=== PATIENT | female | born 1965 | race Caucasian/White ===

== ENCOUNTER → 2017-01-30 | Outpatient (CLI) | payer MEDICAID ==
[2017-01-30 12:48] LABS: CH 30.7; CHCM 35.1; HCT 34.3 % (34.0-46.0); HDW 2.26; HGB 12.2 gm/dL (11.4-16.0); MCH 31.3 pg (25.0-35.0); MCHC 35.7 g/dL (31.0-37.0); MCV 87.6 fL (80.0-100.0); RBC 3.91 m/uL (3.80-5.40); RDW 12.6 % (11.5-15.5); WBC 5.3 k/uL (3.8-10.6)
[2017-01-30 13:14] LABS: ALT 31 U/L (9-52); AST 17 U/L (14-36); Alkaline Phosphatase 60 U/L (38-126); Anion Gap 11 mmol/L; Blood Urea Nitrogen 8 mg/dL (7-17); Calcium 9.5 mg/dL (8.4-10.2); Carbon Dioxide 27 mmol/L (22-30); Chloride 87 mmol/L (98-107); Glucose 96 mg/dL (74-99); Non-African American GFR(MDRD) >60 (>60 ml/min/1.73 sqM); Potassium 4.3 mmol/L (3.5-5.1); Sodium 125 mmol/L (137-145); Total Bilirubin 0.5 mg/dL (0.2-1.3); Total Protein 7.6 g/dL (6.3-8.2)
[2017-01-30 14:02] LABS: Vitamin B12 540 pg/mL (239-931)
== END | disposition home or self-care (01) ==
LOC: LABWHC1 12:03
PROVIDERS: ATTEND Psychiatry & Neurology Neurology
DX: T42.1X5D Adverse effect of iminostilbenes, subsequent encounter (principal)
CPT/HCPCS: 36415; 80053; 82306; 82607; 84439; 84443; 85027

== ENCOUNTER 2017-02-06 08:11 | Day surgery (SDC) | payer MEDICAID ==
[2017-01-26 16:14] VITALS: BMI 34.7
[~2017-02-06 08:11] MED LIST: LACTATED RINGERS 1,000 ML IV SCH
[2017-02-06 08:57] VITALS: TEMP 98.1
[2017-02-06] MEDS ORDERED: LIDOCAINE 1% 20 ML VIAL (10MG/ML) FOR IV START INTRADERMA ONE (09:13)
[2017-02-06] MEDS ORDERED: GLYCOPYRROLATE 0.2 MG/ML 2 ML VIAL ONE (09:21)
[2017-02-06] MEDS ORDERED: LIDOCAINE 1% INJ 10MG/ML (20 ML MDV) ONE (09:21)
[2017-02-06] MEDS ORDERED: PROPOFOL 10 MG/ML 20 ML VIAL IV ONE (09:21)
--- NOTE | 2017-02-06 09:27 | P.GSHP ---
History of Present Illness H&P Date: 02/06/17 Chief Complaint: Abdominal pain Screening Patient today for upper and lower endoscopy. She has postprandial upper abdominal pain. No nausea or vomiting. Denies rectal bleeding or melena. No prior endoscopy. Due for screening colonoscopy. Past Medical History Past Medical History: Hypertension, Seizure Disorder Additional Past Medical History / Comment(s): epigastric pain, especially after eating, last seizure 2011 History of Any Multi-Drug Resistant Organisms: None Reported Past Surgical History: Tubal Ligation, Uterine Ablation Additional Past Surgical History / Comment(s): eye surg. Past Anesthesia/Blood Transfusion Reactions: No Reported Reaction Smoking Status: Never smoker Past Alcohol Use History: Rare Past Drug Use History: None Reported - Past Family History Mother Family Medical History: Coronary Artery Disease (CAD), Diabetes Mellitus Medications and Allergies Home Medications Medication Instructions Recorded Confirmed Type ALPRAZolam [Xanax] 0.5 mg PO HS 01/26/17 01/26/17 History Cholecalciferol [Vitamin D3] 1,000 unit PO DAILY 01/26/17 01/26/17 History Enalapril [Vasotec] 10 mg PO DAILY 01/26/17 02/02/17 History Multivit with Calcium,Iron,Min 1 each PO DAILY 01/26/17 01/26/17 History [Women's Multivitamin] OXcarbazepine [Trileptal] 300 mg PO QAM 01/26/17 01/26/17 History OXcarbazepine [Trileptal] 450 mg PO HS 01/26/17 01/26/17 History Coffeen-3 Fatty Acids/Fish Oil [Fish 1 each PO DAILY 01/26/17 01/26/17 History Oil 1,000 mg Softgel] lamoTRIgine [LaMICtal Xr] 25 mg PO DAILY 01/27/17 01/27/17 History Allergies Allergy/AdvReac Type Severity Reaction Status Date / Time Sulfa (Sulfonamide Allergy Rash/Hives Verified 02/06/17 08:42 Antibiotics) Surgical - Exam Vital Signs Temp Pulse Resp BP Pulse Ox 98.1 F 70 16 136/79 99 02/06/17 08:56 02/06/17 08:56 02/06/17 08:56 02/06/17 08:56 02/06/17 08:56 Physical exam: General: Well-developed, well-nourished HEENT: Normocephalic, sclerae nonicteric Abdomen: Nontender, nondistended Extremities: No edema Neuro: Alert and oriented Assessment and Plan (1) Abdominal pain Narrative/Plan: Will proceed with upper and lower endoscopy at this time. Associated risks were reviewed. Status: Acute
--- NOTE | 2017-02-06 09:56 | P.PCN ---
Date of Procedure: 02/06/17 Procedure(s) Performed: PREOPERATIVE DIAGNOSIS: Abdominal pain, screening POSTOPERATIVE DIAGNOSIS: Gastritis, hepatic flexure polyp PROCEDURE: 1. EGD with biopsy 2. Colonoscopy with snare polypectomy ANESTHESIA: MAC SURGEON: Nilo Perla M.D. SPECIMENS: Duodenum, antrum, hepatic flexure polyp ENDOSCOPIC PROCEDURE: The patient was on the endoscopy table in the left decubitus position. The Olympus gastroscope was inserted into the oropharynx and passed under direct visualization to the region of the third portion of the duodenum. From that point the scope was slowly withdrawn inspecting all surfaces carefully. There were no neoplastic inflammatory or polypoid lesions throughout the duodenum. The pylorus was widely patent although there was mild inflammation seen at the level of the pylorus. No definite ulceration was noted. The stomach was carefully inspected. There was a biopsy of the prepyloric region taken. Retroflexion revealed a normal hiatus. The esophagus was then carefully examined. There were no neoplastic inflammatory or polypoid lesions throughout the visualized esophagus. The patient was kept on the endoscopy table in the left decubitus position. The Olympus colonoscope was inserted into the anus and passed under direct visualization to the base of the cecum. The appendiceal orifice was visualized. From that point the scope was slowly withdrawn inspecting all surfaces carefully. There were no neoplastic inflammatory or polypoid lesions throughout the cecum and ascending colon. At the hepatic flexure a small polyp was identified and removed using the snare with cautery technique. The remainder of the transverse, descending, sigmoid and rectum appeared normal. There was no diverticulosis noted. Digital rectal examination was normal. The patient was taken to the recovery room in stable condition per anesthesia guidelines. RECOMMENDATIONS: Await BX results. Empirically start antiacid therapy.
[2017-02-06 10:37] VITALS: RESP 18
[2017-02-06] MEDS ORDERED: fentaNYL (PF) 50 MCG/ML 2 ML AMP IV ONE (10:56)
[2017-02-06 11:23] VITALS: BP 118/72; PULSE 66
== END 2017-02-06 11:23 | disposition home or self-care (01) ==
LOC: ORWHC2ENDO 08:11
PROVIDERS: ATTEND Surgery
DX: Z12.11 Encounter for screening for malignant neoplasm of colon (principal); D12.3 Benign neoplasm of transverse colon; K29.50 Unspecified chronic gastritis without bleeding; I10 Essential (primary) hypertension; G40.909 Epilepsy, unspecified, not intractable, without status epilepticus; F41.9 Anxiety disorder, unspecified; E78.5 Hyperlipidemia, unspecified; Z79.899 Other long term (current) drug therapy; Z88.2 Allergy status to sulfonamides
CPT/HCPCS: 81025; 88305; 88342; 45385; 43239; J2704; J2001; J3010

== ENCOUNTER → 2017-02-13 | Outpatient (CLI) | payer MEDICAID ==
[2017-02-13 12:52] LABS: Anion Gap 7 mmol/L; Blood Urea Nitrogen 10 mg/dL (7-17); Calcium 9.2 mg/dL (8.4-10.2); Carbon Dioxide 24 mmol/L (22-30); Chloride 106 mmol/L (98-107); Glucose 116 mg/dL (74-99); Non-African American GFR(MDRD) >60 (>60 ml/min/1.73 sqM); Potassium 4.3 mmol/L (3.5-5.1); Sodium 137 mmol/L (137-145)
== END | disposition home or self-care (01) ==
LOC: LABWHC1 12:06
PROVIDERS: ATTEND Family Medicine
DX: E87.1 Hypo-osmolality and hyponatremia (principal)
CPT/HCPCS: 36415; 80048

== ENCOUNTER → 2017-08-20 | Outpatient (CLI) | payer MEDICAID ==
[2017-08-20 08:45] LABS: Basophils % (A) 1 %; CH 29.8; CHCM 33.3; Eosinophils # (A) 0.1 k/uL (0-0.7); Eosinophils % (A) 3 %; HCT 37.4 % (34.0-46.0); HDW 2.21; HGB 12.5 gm/dL (11.4-16.0); Luc # (Auto) 0.08; Luc % (Auto) 2; Lymphocytes # (A) 1.8 k/uL (1.0-4.8); Lymphocytes % (A) 36 %; MCH 29.9 pg (25.0-35.0); MCHC 33.4 g/dL (31.0-37.0); MCV 89.7 fL (80.0-100.0); Mean Platelet Volume 6.3; Monocytes # (A) 0.3 k/uL (0-1.0); Monocytes % (A) 6 %; Neutrophils # (A) 2.8 k/uL (1.3-7.7); Neutrophils % (A) 54 %; RBC 4.17 m/uL (3.80-5.40); RDW 12.8 % (11.5-15.5); WBC 5.2 k/uL (3.8-10.6); WBC (Perox) 5.04
[2017-08-20 11:54] LABS: Erythrocyte Sedimentation Rate 12 mm/hr (0-20)
[2017-08-20 14:07] LABS: ALT 31 U/L (9-52); AST 17 U/L (14-36); Alkaline Phosphatase 65 U/L (38-126); Anion Gap 9 mmol/L; Blood Urea Nitrogen 11 mg/dL (7-17); Calcium 9.6 mg/dL (8.4-10.2); Carbon Dioxide 26 mmol/L (22-30); Chloride 105 mmol/L (98-107); Cholesterol 237 mg/dL (<200); Glucose 99 mg/dL (74-99); HDL Cholesterol 73 mg/dL (40-60); Non-African American GFR(MDRD) >60 (>60 ml/min/1.73 sqM); Potassium 4.8 mmol/L (3.5-5.1); Sodium 140 mmol/L (137-145); Total Bilirubin 0.4 mg/dL (0.2-1.3); Total Protein 7.4 g/dL (6.3-8.2); Uric Acid 4.5 mg/dL (3.7-7.4)
[2017-08-20 16:28] LABS: C Reactive Protein <5.0 mg/L (<10.0)
[2017-08-20 16:45] LABS: Rheumatoid Factor, Qnt <9 IU/mL (<12)
== END | disposition home or self-care (01) ==
LOC: LABWHC1 08:03
PROVIDERS: ATTEND Family Medicine
DX: M79.1 Myalgia (principal); I10 Essential (primary) hypertension; G40.909 Epilepsy, unspecified, not intractable, without status epilepticus
CPT/HCPCS: 36415; 80053; 80061; 80183; 84443; 84550; 85025; 85652; 86038; 86140; 86431

== ENCOUNTER → 2018-06-07 | Outpatient (CLI) | payer MEDICAID ==
[2018-06-08 01:15] LABS: Cyclic Citrullinated Pep IgG NEGATIVE (NEGATIVE)
[2018-06-08 02:09] LABS: Rheumatoid Factor 6 IU/mL (0-15)
[2018-06-08 04:06] LABS: Urine Alcohol Negative (Negative); Urine Barbiturate Negative (Negative); Urine Cocaine Negative (Negative); Urine Methadone Negative (Negative); Urine Opiates Negative (Negative); Urine Phencyclidine Negative (Negative)
== END | disposition home or self-care (01) ==
LOC: LABWHC1 16:38
PROVIDERS: ATTEND Family Medicine
DX: M25.50 Pain in unspecified joint (principal); Z79.899 Other long term (current) drug therapy
CPT/HCPCS: 36415; 80306; 85652; 86038; 86200; 86431

== ENCOUNTER → 2018-09-09 | Outpatient (CLI) | payer MEDICAID ==
--- NOTE | 2018-09-10 08:10 | MR ---
EXAMINATION TYPE: MR knee LT wo con DATE OF EXAM: 09/09/2018 COMPARISON: NONE HISTORY: Pain in left knee after injury one month ago. TECHNIQUE: Multiplanar, multisequence images of the knee is performed without IV contrast. FINDINGS: MEDIAL MENISCUS: Anterior horn is intact without tear. Some oblique increased signal posterior horn m edial meniscus does not definitively extend to articular surface, cannot exclude intrasubstance tear. Slight medial extrusion of meniscus is present LATERAL MENISCUS: Anterior and posterior horns are intact without tear. CRUCIATE LIGAMENTS: The anterior and posterior cruciate ligaments are intact and unremarkable. COLLATERAL LIGAMENTS: The medial collateral ligament and lateral collateral ligament complex are inta ct and unremarkable. EXTENSOR MECHANISM: Visualized quadriceps and patellar tendons are intact. EFFUSION: There is large suprapatellar joint effusion. POPLITEAL CYST: No popliteal/gray cyst. There is however focal fluid collection measuring 1.8 x 1.9 x 2.7 cm craniocaudal dimension axial image 6 and sagittal image 12 posterior lateral aspect of prox imal tibia. TRICOMPARTMENT SPACES: There is mild to moderate tricompartment degenerative change and mild spurring . CARTILAGE: Some contemplation patella is present with fissuring and thinning of the posterior patella r articular cartilage. There is some cartilaginous loss medial tibiofemoral compartment BONE MARROW SIGNAL: No focal abnormal marrow signal is appreciated. OTHER: Mild to moderate superficial infrapatellar fluid is noted. IMPRESSION: 1. Large suprapatellar joint effusion. 2. Background mild to moderate tricompartment degenerative changes. 3. No significant meniscal or ligamentous tear is seen. Cannot exclude intrasubstance tear posterior horn of medial meniscus. 4. Moderate-sized posterior lateral cyst proximal tibial level likely reflecting synovial cyst.
== END | disposition home or self-care (01) ==
LOC: RADMRIMAIN 21:00
PROVIDERS: ATTEND Orthopaedic Surgery
DX: M25.862 Other specified joint disorders, left knee (principal); M17.12 Unilateral primary osteoarthritis, left knee

== ENCOUNTER → 2018-09-16 | Outpatient (CLI) | payer MEDICAID ==
[2018-09-16 18:02] LABS: Basophils % (A) 0 %; Eosinophils # (A) 0.2 k/uL (0-0.7); Eosinophils % (A) 2 %; HCT 36.4 % (34.0-46.0); HGB 12.3 gm/dL (11.4-16.0); Lymphocytes # (A) 3.6 k/uL (1.0-4.8); Lymphocytes % (A) 43 %; MCH 30.3 pg (25.0-35.0); MCHC 33.8 g/dL (31.0-37.0); MCV 89.5 fL (80.0-100.0); Mean Platelet Volume 6.6; Monocytes # (A) 0.5 k/uL (0-1.0); Monocytes % (A) 6 %; Neutrophils # (A) 3.9 k/uL (1.3-7.7); Neutrophils % (A) 47 %; Platelet Count 261 k/uL (150-450); RBC 4.06 m/uL (3.80-5.40); RDW 13.2 % (11.5-15.5); WBC 8.4 k/uL (3.8-10.6)
[2018-09-16 18:17] LABS: Potassium 4.6 mmol/L (3.5-5.1)
== END | disposition home or self-care (01) ==
LOC: LABPAT 16:49
PROVIDERS: ATTEND Orthopaedic Surgery
DX: Z01.818 Encounter for other preprocedural examination (principal); Z01.812 Encounter for preprocedural laboratory examination; M23.92 Unspecified internal derangement of left knee
CPT/HCPCS: 80051; 85025; 93005

== ENCOUNTER 2018-10-06 10:05 | Day surgery (SDC) | payer MEDICAID ==
[2018-09-23 08:57] VITALS: BMI 33.1
--- NOTE | 2018-10-05 13:40 | HP ---
HISTORY AND PHYSICAL Surgery is 10/06/2018. Yaneth De Luna is a 52-year-old patient seen with progressive left knee pain. We discussed options. She elected to proceed with arthroscopy. Consent was obtained. PAST MEDICAL HISTORY: Hypertension. PAST SURGICAL HISTORY: Noncontributory. DAILY MEDICATIONS: Ibuprofen. ALLERGIES: SULFA. SOCIAL HISTORY: Patient denies tobacco use. PHYSICAL EXAMINATION: Physical evaluation of left knee: Range of motion -2 to 120 degrees. Moderate effusion. Tenderness medial joint line. Positive medial Moreno's. Ligaments stable. Distal neurovascular exam is intact. Radiographs of the left knee reveal some mild osteoarthritic changes. No acute osseous abnormality. MRI left knee revealed medial meniscal tear and large joint effusion. IMPRESSION: Internal derangement left knee with medial meniscal tear. PLAN: Left knee arthroscopy with partial meniscectomy and debridement. MMODL / IJN: [id number] /
[~2018-10-06 10:05] MED LIST changes: -LACTATED RINGERS 1,000 ML IV SCH; +ceFAZolin IN SWFI 2 GM/20 ML SYRINGE IVP ONE
[2018-10-06] MEDS ORDERED: DEXAMETHASONE SOD PHOSPHATE 10 MG/ML 1 ML VIAL IV ONE (10:48)
[2018-10-06] MEDS ORDERED: LIDOCAINE 1% 20 ML VIAL (10MG/ML) FOR IV START INTRADERMA PRN (10:48)
[2018-10-06] MEDS ORDERED: SCOPOLAMINE 1.5MG/72HR PATCH TRANSDERM ONE (10:48)
[2018-10-06] MEDS ORDERED: HYDROmorphone 0.5 MG/0.5 ML SYRINGE IVP PRN (10:48)
[2018-10-06] MEDS: ONDANSETRON 4 MG/2 ML VIAL IVP ONE ×2 (11:04→16:28)
[2018-10-06] MEDS: LACTATED RINGERS 1,000 ML IV SCH ×2 (11:07→16:35)
[2018-10-06] MEDS ORDERED: fentaNYL (PF) 50 MCG/ML 2 ML AMP ONE (12:56)
[2018-10-06] MEDS ORDERED: MIDAZOLAM 2 MG/2 ML VIAL ONE (12:56)
[2018-10-06] MEDS ORDERED: LIDOCAINE 1% INJ 10MG/ML (20 ML MDV) ONE (12:56)
[2018-10-06] MEDS ORDERED: PROPOFOL 10 MG/ML 50 ML VIAL IV ONE (12:56)
[2018-10-06] MEDS ORDERED: BUPIVACAIN-EPI 0.25%-1:200,000 30 ML VIAL INTRAARTIC ONE (13:27)
--- NOTE | 2018-10-06 13:42 | P.OP ---
Date of Procedure: 10/06/18 Preoperative Diagnosis: Internal derangement left knee Postoperative Diagnosis: 1. Medial and lateral meniscal tears left knee 2. Grade 3/4 chondromalacia medial femoral condyle left knee 3. Grade 2/3 chondromalacia patella left knee 4. Reactive synovitis medial and suprapatellar compartments left knee Procedure(s) Performed: 1. Arthroscopic partial medial and lateral meniscectomy left knee 2. Arthroscopic chondroplasty medial femoral condyle left knee 3. Arthroscopic chondroplasty patella left knee 4. Arthroscopic partial synovectomy medial and suprapatellar compartments left knee Anesthesia: VNEITAA, local Surgeon: João Urrutia Estimated Blood Loss (ml): 5 Pathology: none sent Condition: stable Disposition: PACU Indications for Procedure: 52-year-old patient seen with progressive left knee pain. After treatment options were discussed, she elected to proceed with arthroscopy. Operative Findings: See description of procedure Description of Procedure: Patient was taken to the operative suite. Patient underwent a general anesthetic by the department of anesthesia. Patient was given preoperative antibiotics. The left lower extremity was placed in a well-padded arthroscopic leg santiago. The left leg was prepped and draped in the normal sterile orthopedic fashion. A lateral parapatellar and suprapatellar incision was made. Trochars were inserted. Arthroscopy was initiated. Suprapatellar pouch revealed diffuse thick reactive synovitis. The patellofemoral joint appeared to articulate congruently. There was 2/3 chondromalacia of the patella with some osteochondral tears present. The scope was guided into the medial gutter. No loose bodies or plica were identified. The scope was then guided into the medial compartment. A medial parapatellar incision was made. Trocar inserted followed by probe. There was a radial tear posterior horn medial meniscus. There were grade 3/4 chondromalacia changes of the medial femoral condyle with some osteochondral tears and grade 4 chondromalacia changes of the tibial plateau. There was thick reactive synovitis anteriorly. I performed a partial medial meniscectomy down to stable tissue. I performed a chondroplasty of the medial femoral condyle down to stable tissue. I performed a partial synovectomy decompressing the reactive some-itis anteriorly. The residual meniscus was stable. The residual osteochondral surfaces were stable. Scope and probe were then guided into the intercondylar notch. Cruciates were identified, probed and found to be stable. The scope and probe were then guided into lateral compartment. There was a radial tear posterior horn lateral meniscus. There were grade 2 chondromalacia changes lateral femoral condyle. There was no synovitis. I performed a partial lateral meniscectomy down to stable tissue. The residual meniscus was found to be stable. The scope was in guided back into the suprapatellar compartment. I introduced a motorized shaver into the suprapatellar compartment. I performed a chondroplasty of the patella down to stable tissue. I performed a partial synovectomy decompressing the reactive synovitis. The residual osteochondral surface of the patella was stable. I took one more look around the entire knee , no residual debris. Instruments were now removed from the joint. The joint was infiltrated with .25% Marcaine. Steri-Strips were applied to the portal sites. Sterile dressings were applied. The patient was placed into a DANNY hose. No tourniquet was utilized. The patient was awakened, transferred to a bed and taken to recovery stable satisfactory condition.
[2018-10-06] MEDS ORDERED: HYDROmorphone 1 MG/ML 1 ML SYRINGE IVP ONE ×4 (13:46→14:08)
[2018-10-06 13:50] VITALS: TEMP 97.1
[2018-10-06] MEDS ORDERED: MEPERIDINE 50 MG/ML SYRINGE IVP ONE (14:26)
[2018-10-06] MEDS ORDERED: LACTATED RINGERS 1,000 ML IV ONE (14:46)
[2018-10-06 15:12] VITALS: RESP 16
[2018-10-06] MEDS ORDERED: HYDROcodone/APAP 5-325MG 1 EACH TAB PO ONE (15:38)
[2018-10-06 16:14] VITALS: BP 130/72; PULSE 78
[2018-10-06] MEDS ORDERED: diphenhydrAMINE 50 MG/ML 1 ML VIAL IVP ONE (17:10)
== END 2018-10-06 18:21 | disposition home or self-care (01) ==
LOC: OR 10:05
PROVIDERS: ATTEND Orthopaedic Surgery
DX: M23.322 Other meniscus derangements, posterior horn of medial meniscus, left knee (principal); M23.352 Other meniscus derangements, posterior horn of lateral meniscus, left knee; M65.862 Other synovitis and tenosynovitis, left lower leg; M22.42 Chondromalacia patellae, left knee; I10 Essential (primary) hypertension; M93.862 Other specified osteochondropathies, left lower leg; G40.909 Epilepsy, unspecified, not intractable, without status epilepticus; Z79.899 Other long term (current) drug therapy; Z88.2 Allergy status to sulfonamides; Z79.1 Long term (current) use of non-steroidal anti-inflammatories (NSAID)
CPT/HCPCS: 81025; 29880; J2250; J1200; J1100; J2175; J2405; J2001; J3010; J1170; J2704; J0690

== ENCOUNTER → 2018-10-25 | Outpatient (CLI) | payer MEDICAID ==
--- NOTE | 2018-10-27 09:43 | MM ---
Reason for exam: screening (asymptomatic). Last mammogram was performed 2 years and 8 months ago. History: Family history of breast cancer in paternal grandmother and breast cancer in maternal aunt. Taking hormonal contraceptives for 22 years beginning at age 20. Physical Findings: A clinical breast exam by your physician is recommended on an annual basis and results should be correlated with mammographic findings. MG 3D Screening Mammo W/Cad Bilateral CC and MLO view(s) were taken. Prior study comparison: February 15, 2016, bilateral MG 3d screening mammo w/cad. November 03, 2013, [facility] DIGITAL RIGHT MAMMOGRAM w/CAD. The breast tissue is heterogeneously dense. This may lower the sensitivity of mammography. No significant changes when compared with prior studies. ASSESSMENT: Benign, BI-RAD 2 RECOMMENDATION: Routine screening mammogram of both breasts in 1 year.
== END | disposition home or self-care (01) ==
LOC: RADMAMWWP 11:24
PROVIDERS: ATTEND Family Medicine
DX: Z12.31 Encounter for screening mammogram for malignant neoplasm of breast (principal)
CPT/HCPCS: 77063; 77067

== ENCOUNTER → 2019-04-28 | Outpatient (CLI) | payer MEDICAID ==
[2019-04-28 12:19] LABS: Basophils % (A) 0 %; Eosinophils # (A) 0.1 k/uL (0-0.7); Eosinophils % (A) 2 %; HCT 38.5 % (34.0-46.0); HGB 12.1 gm/dL (11.4-16.0); Lymphocytes # (A) 2.5 k/uL (1.0-4.8); Lymphocytes % (A) 38 %; MCH 28.2 pg (25.0-35.0); MCHC 31.4 g/dL (31.0-37.0); MCV 89.7 fL (80.0-100.0); Mean Platelet Volume 6.3; Monocytes # (A) 0.4 k/uL (0-1.0); Monocytes % (A) 6 %; Neutrophils # (A) 3.5 k/uL (1.3-7.7); Neutrophils % (A) 52 %; Platelet Count 356 k/uL (150-450); RBC 4.29 m/uL (3.80-5.40); RDW 13.2 % (11.5-15.5); WBC 6.7 k/uL (3.8-10.6)
[2019-04-28 20:37] LABS: Albumin 4.6 g/dL (3.80-4.90); Albumin/Globulin Ratio 1.92 (1.60-3.17); Anion Gap 9.7 mmol/L (4.00-12.00); Calcium 9.6 mg/dL (8.7-10.3); Carbon Dioxide 26.3 mmol/L (21.6-31.8); Globulin 2.4 g/dL (1.6-3.3); Potassium 4.6 mmol/L (3.5-5.5); Total Bilirubin 0.2 mg/dL (0.2-1.2)
== END ==
LOC: LABWHC1 10:52
PROVIDERS: ATTEND Psychiatry & Neurology Neurology
DX: G40.019 Localization-related (focal) (partial) idiopathic epilepsy and epileptic syndromes with seizures of localized onset, intractable, without status epilepticus (principal); G43.719 Chronic migraine without aura, intractable, without status migrainosus
CPT/HCPCS: 36415; 80053; 85025

== ENCOUNTER → 2019-07-11 | Outpatient (CLI) | payer MEDICAID ==
[2019-07-11 08:28] LABS: Basophils % (A) 1 %; Eosinophils # (A) 0.3 k/uL (0-0.7); Eosinophils % (A) 4 %; HCT 38.3 % (34.0-46.0); HGB 12.3 gm/dL (11.4-16.0); Lymphocytes % (A) 29 %; MCH 28.9 pg (25.0-35.0); MCV 90.4 fL (80.0-100.0); Mean Platelet Volume 6.6; Monocytes # (A) 0.4 k/uL (0-1.0); Monocytes % (A) 6 %; Neutrophils % (A) 59 %; Platelet Count 252 k/uL (150-450); RBC 4.23 m/uL (3.80-5.40); RDW 14.5 % (11.5-15.5); WBC 6.7 k/uL (3.8-10.6)
[2019-07-11 08:38] LABS: Potassium 4.4 mmol/L (3.5-5.1)
== END | disposition home or self-care (01) ==
LOC: LABWHC1 07:54
PROVIDERS: ATTEND Orthopaedic Surgery
DX: Z01.812 Encounter for preprocedural laboratory examination (principal); Z01.818 Encounter for other preprocedural examination; M17.12 Unilateral primary osteoarthritis, left knee
CPT/HCPCS: 80051; 85025; 87070

== ENCOUNTER → 2019-08-02 | Outpatient (CLI) | payer MEDICAID ==
[2019-08-02 16:04] LABS: INR 0.9 (<1.2); Prothrombin Time 10.2 sec (9.0-12.0)
== END | disposition home or self-care (01) ==
LOC: LABPAT 15:16
PROVIDERS: ATTEND Orthopaedic Surgery
DX: Z01.812 Encounter for preprocedural laboratory examination (principal); M17.12 Unilateral primary osteoarthritis, left knee; Z79.01 Long term (current) use of anticoagulants
CPT/HCPCS: 36415; 85610

== ENCOUNTER 2019-08-08 05:54 | Inpatient (IN) | payer MEDICAID ==
--- NOTE | 2019-08-07 14:18 | HP ---
HISTORY AND PHYSICAL REASON FOR ADMISSION: Surgery scheduled for 08/08/2019. Yaneth De Luna is a 53-year-old patient seen with progressive symptomatic left knee osteoarthritis. After having treatment options discussed, she elected to proceed with left total knee arthroplasty. Consent regarding the procedure was obtained. Medical clearance was provided by Dr. Miner. PAST MEDICAL HISTORY: Hypertension. PAST SURGICAL HISTORY: Left knee arthroscopy, tubal ligation. MEDICATIONS: Antihypertensive. ALLERGIES: SULFA. SOCIAL HISTORY: She denies current tobacco use. PHYSICAL EXAMINATION: Evaluation of the left knee: Range of motion is -2 to 115 degrees. Tenderness along the medial joint line. Crepitus along the medial and patellofemoral compartments range of motion. Ligaments are stable. Hip rotation is without pain. Her distal neurovascular exam is intact. RADIOGRAPHS: Radiographs of the left knee reveal severe medial and moderate patellofemoral compartment osteoarthritis. IMPRESSION: 1. Left knee osteoarthritis. 2. Hypertension. PLAN: Left total knee arthroplasty. Surgery scheduled for 08/08/2019. MMODL / IJN: [id number] /
[~2019-08-08 05:54] MED LIST changes: +ACETAMINOPHEN TAB 500 MG TAB PO ONE; +DEXAMETHASONE SOD PHOSPHATE 10 MG/ML 1 ML VIAL IV ONE; +HYDROmorphone 0.5 MG/0.5 ML SYRINGE IVP PRN; +LACTATED RINGERS 1,000 ML IV SCH; +MELOXICAM 7.5 MG TAB PO ONE; +MIDAZOLAM 2 MG/2 ML VIAL IV PRN; +ONDANSETRON 4 MG/2 ML VIAL IVP ONE; +SCOPOLAMINE 1.5MG/72HR PATCH TRANSDERM ONE; +TRANEXAMIC ACID 1,000 MG in SODIUM CHLORIDE 0.9% 100 ML IVPB ONE; -ceFAZolin IN SWFI 2 GM/20 ML SYRINGE IVP ONE
[2019-08-08] MEDS ORDERED: LIDOCAINE 1% 20 ML VIAL (10MG/ML) FOR IV START SQ ONE (06:33)
[2019-08-08] MEDS ORDERED: MIDAZOLAM (PF) 2 MG/2 ML VIAL IV ONE (06:46)
[2019-08-08] MEDS ORDERED: fentaNYL (PF) 50 MCG/ML 2 ML AMP IVP ONE (06:51)
[2019-08-08] MEDS ORDERED: SODIUM CHLORIDE 0.9% 100 ML BAG ONE (07:18)
[2019-08-08] MEDS ORDERED: fentaNYL (PF) 50 MCG/ML 2 ML AMP ONE (07:18)
[2019-08-08] MEDS ORDERED: TRANEXAMIC ACID 1,000 MG/10 ML VIAL ONE (07:18)
[2019-08-08] MEDS ORDERED: PROPOFOL 10 MG/ML 20 ML VIAL IV ONE (07:18)
[2019-08-08] MEDS ORDERED: MIDAZOLAM 2 MG/2 ML VIAL ONE (07:18)
[2019-08-08] MEDS ORDERED: ceFAZolin 3,000 MG in SODIUM CHLORIDE 0.9% IRRIGATIO 3,000 ML IRRIGATION ONE (07:23)
[2019-08-08] MEDS ORDERED: ROPIVACAINE 246.25 MG, EPINEPHrine 0.5 MG, KETOROLAC 30 MG, cloNIDine HCL/PF 80 MCG, WA... MISCELLANE ONE ×5 (07:50)
--- NOTE | 2019-08-08 08:15 | P.ANPRN ---
Procedure Note - Anesthesia - Nerve Block Performed Left Adductor Canal Time Out Performed: Yes (07:02) Date of Procedure: 08/08/19 Procedure Start Time: : Procedure Stop Time: :17 Location of Patient Procedure: PreOp Indication: Acute Post-Operative Pain, Requested by Surgeon (Dr Urrutia) Sedation Type: Sedate with meaningful contact maintained Preparation: Sterile Prep, Sterile Dressing Position: Supine Catheter: Indwelling Needle Types: On-Q Needle Gauge: 21 Ultrasound used to visualize needle placement: Yes Ultrasound used to observe medication spread: Yes Injectate: 0.5% Ropivacaine (see comment for volume) (22cc) Blood Aspirated: No Pain Paresthesia on Injection Noted: No Resistance on Injection: Normal Image Stored and Saved: Yes Events: Uneventful and Well Tolerated
[2019-08-08] MEDS ORDERED: LACTATED RINGERS 1,000 ML IV ONE (08:26)
--- NOTE | 2019-08-08 09:11 | P.OP ---
Date of Procedure: 08/08/19 Preoperative Diagnosis: Left knee osteoarthritis Postoperative Diagnosis: Left knee osteoarthritis Procedure(s) Performed: Left total knee arthroplasty Implants: 1. Depuy attune size 4 left cruciate-retaining cemented femur 2. Depuy attune size 3 fixed bearing cemented tibial baseplate 3. Depuy attune size 4 fixed bearing 7 mm polyethylene tibial insert 4. Depuy attune 38 mm all polyethylene cemented patella Anesthesia: GETA, regional (Interscalene block), local Surgeon: João Urrutia Estimated Blood Loss (ml): 40 Pathology: other (Bone) Condition: stable Disposition: PACU Indications for Procedure: 53-year-old patient seen with symptomatic left knee osteoarthritis. After treatment options were discussed, she elected to proceed with total knee arthroplasty. Operative Findings: see description of procedure Description of Procedure: Patient was taken to the operative suite after having an adductor canal catheter placed by the department of anesthesia for postoperative pain management. Patient underwent a spinal anesthetic by the department of anesthesia. Patient was given preoperative IV intake antibiotics and TXA. A well-padded tourniquet was placed about the left lower extremity. The lower extremity was then prepped and draped in the normal sterile orthopedic fashion. The extremity was elevated, a tourniquet was insufflated to 300. A standard anterior incision was made sharply through skin. Dissection was taken down through the subcutaneous soft tissues down to the extensor mechanism. A medial arthrotomy was performed, patella was everted and knee was flexed. There was advanced osteoarthritis noted. I introduced my distal intramedullary femoral drill. I then introduced the distal femoral cutting jig. Jacob JONES secured the cutting jig with 2 pins. I held retractors in position while Jacob JONES performed the distal femoral resection through the guide area we now removed her distal femoral cutting guide. We now placed our 4-in-1 femoral cutting block and positioned and it was secured with 2 pins by my res habilitation assistant while I held the block in position. The distal femoral finishing was now completed. A proximal tibial cutting guide was positioned. I held the guide in the appropriate position with both hands well Jacob JONES inserted stabilizing pins into the guide. Proximal tibial cut was made. We now placed a trial femoral component into position, along with an appropriate size tibial tray and insert. We now took the knee through range of motion and had full extension good flexion and good overall soft tissue balance noted. The patella was everted and stabilized with 2 towel clips held by my res habilitation assistant while I performed a flush with patellar quad tendon utilizing a fresh sawblade. We templated the patella, appropriate drill holes were made. An appropriate trial patella was positioned, knee was taken through full range of motion with the patella tracking very nicely. The trial patella was removed. Drill holes were made through the femoral component. All trial components were removed after marking off the appropriate rotation of the tibia. Retractors were now positioned along the proximal tibia. An appropriate keel punch was made with the appropriate size tibial guide by myself while my res habilitation assistant assisted by holding retractors. At this point appropriate size implants were chosen and opened. The joint was irrigated copiously with pulse lavage mechanical irrigation. The posterior capsule was infiltrated with local analgesic. The wound was irrigated with pulse lavage mechanical irrigation. We mixed antibiotic methylmethacrylate. We placed the knee into flexion. We placed multiple retractors assisted by Jacob JONES to expose the proximal tibia. Once the methyl methacrylate was ready, the tibial component was cemented into place removing any excess methylmethacrylate form by both myself and my res habilitation assistant. The femoral component was cemented into place removing the removing any excess methylmethacrylate performed by both myself and Jacob JONES. We then inserted the appropriate size polyethylene tibial insert. We made sure that it was locked into position. We took the knee into full extension, and then back in a flexion making sure we had removed any excess methylmethacrylate. The patellar component was then cemented down and secured with clamp. Excess methylmethacrylate removed. We kept the knee in full extension, patellar clamp in position until methylmethacrylate had hardened. Once it had hardened the patellar clamp was removed. The knee was taken through full range of motion. The patella tracked nicely. There was good soft tissue balancing. The tourniquet was now released. Additional hemostasis was achieved via electrocautery. A second gram of TXA was given. The wound again was irrigated with pulse lavage mechanical irrigation. The superficial soft tissues were infiltrated local analgesic. The extensor mechanism was repaired with Vicryl. We checked the repair with range of motion and it was stable. The subcutaneous soft tissues were repaired with Vicryl in layers. The skin was approximated with pernio/Dermabond. Sterile dressings were applied followed by loose web roll and Steven bandage. The patient was transferred to a bed, and taken to recovery in stable and satisfactory condition.
[2019-08-08] MEDS ORDERED: ONDANSETRON 4 MG/2 ML VIAL IVP PRN (09:12)
[2019-08-08] MEDS ORDERED: HYDROcodone/APAP 5-325MG 1 EACH TAB PO PRN ×2 (09:12)
[2019-08-08] MEDS ORDERED: HYDROmorphone 0.5 MG/0.5 ML SYRINGE IVP PRN ×2 (09:12)
[2019-08-08] MEDS ORDERED: NALOXONE 0.4 MG/ML 1 ML VIAL IV PRN (09:12)
[2019-08-08] MEDS ORDERED: HYDROmorphone 1 MG/ML 1 ML SYRINGE IVP PRN (09:12)
[2019-08-08] MEDS ORDERED: ROPIVACAINE 0.2%-NS ON-Q PUMP 1,090 MG, EMPTY PAIN BALL 1 EACH MISCELLANE PRN (09:37)
--- NOTE | 2019-08-08 09:53 | XR ---
EXAMINATION TYPE: XR knee limited LT DATE OF EXAM: 08/08/2019 CLINICAL HISTORY: Left knee pain and arthritis status post total knee replacement. TECHNIQUE: Portable AP and crosstable lateral views of the left knee are obtained immediately postop eratively. COMPARISON: MRI left knee September 09, 2018 FINDINGS: Metallic hardware from total left knee arthroplasty is seen and appears satisfactory in al ignment and position. There is evidence of recent surgery with diffuse subcutaneous gas and soft tis chris swelling noted. IMPRESSION: METALLIC HARDWARE FROM TOTAL LEFT KNEE ARTHROPLASTY IS SATISFACTORY IN ALIGNMENT.
[2019-08-08 10:54] VITALS: BMI 34.2
[2019-08-08] MEDS: LACTATED RINGERS 1,000 ML IV SCH ×2 (11:03→20:41)
[2019-08-08] MEDS ORDERED: HYDROcodone/APAP 7.5-325MG 1 EACH TAB PO PRN (13:54)
--- NOTE | 2019-08-08 14:10 | P.CONS ---
History of Present Illness - Reason for Consult Consult date: 08/08/19 Medical management. Requesting physician: João Urrutia - Chief Complaint Left knee pain. - History of Present Illness This 53-year-old lady with past medical history significant for hypertension, osteoarthritis of the left knee, chest esophageal reflux disease, seizure disorder, hyperlipidemia and sleep disorder who apparently failed outpatient management for her left knee osteoarthritis and elected to have totally arthroplasty done. Patient was referred to our service for medical management postoperatively. Patient reports that she is doing fine but there is pain in the left knee area since anesthesia is wearing off. Nurses reported that he just gave her when necessary Dilaudid injection. No other issues were brought up by the patient. Patient denies chest pain, palpitation, headache, dizziness, nausea, vomiting, cough, sputum, fever, chills and denies rest of the review system. Review of Systems 12 point review of system was essentially negative other than mentioned in HPI. Past Medical History Past Medical History: Hypertension, Seizure Disorder Additional Past Medical History / Comment(s): epigastric pain, especially after eating, last seizure 2011 History of Any Multi-Drug Resistant Organisms: None Reported Past Surgical History: Tubal Ligation, Uterine Ablation Additional Past Surgical History / Comment(s): Eye surgery, left knee arthroscopy. Past Anesthesia/Blood Transfusion Reactions: No Reported Reaction Past Psychological History: Anxiety Smoking Status: Never smoker Past Alcohol Use History: Rare Past Drug Use History: None Reported - Past Family History Mother Family Medical History: Coronary Artery Disease (CAD), Diabetes Mellitus Medications and Allergies Home Medications Medication Instructions Recorded Confirmed Type Cholecalciferol [Vitamin D3] 2,000 unit PO DAILY 01/26/17 08/08/19 History OXcarbazepine [Trileptal] 450 mg PO BID 01/26/17 08/08/19 History Amitriptyline HCl [Elavil] 20 mg PO HS 09/23/18 08/08/19 History traZODone HCL 50 mg PO HS 09/23/18 08/08/19 History Lisinopril [Zestril] 20 mg PO DAILY 08/02/19 08/08/19 History Omeprazole [PriLOSEC] 20 mg PO AC-BRKFST 08/02/19 08/08/19 History Allergies Allergy/AdvReac Type Severity Reaction Status Date / Time Sulfa (Sulfonamide Allergy Rash/Hives Verified 08/08/19 09:47 Antibiotics) Physical Exam Vitals: Vital Signs Temp Pulse Pulse Resp BP Pulse Ox 08/08/19 12:45 74 116/72 08/08/19 12:30 73 116/71 08/08/19 12:15 74 117/72 08/08/19 12:00 78 116/69 08/08/19 11:45 89 121/67 08/08/19 11:30 78 121/71 08/08/19 11:15 85 110/69 08/08/19 11:00 85 116/68 08/08/19 10:45 98.4 F 87 12 116/69 95 08/08/19 10:28 79 16 129/67 96 08/08/19 10:15 85 16 131/65 93 L 08/08/19 10:00 80 16 126/64 100 08/08/19 09:45 78 12 125/69 100 08/08/19 09:30 79 12 129/77 100 08/08/19 09:14 97.1 F L 91 12 129/70 95 08/08/19 06:19 96.8 F L 87 16 144/84 96 Intake and Output 08/07/19 08/08/19 08/08/19 22:59 06:59 14:59 Intake Total 500 851 Output Total 40 Balance 500 811 Intake: IV 500 851 Output: Estimated Blood Loss 40 - Constitutional General appearance: cooperative, no acute distress - EENT Eyes: EOMI, normal appearance ENT: hearing grossly normal, NA/AT - Neck Neck: no lymphadenopathy, normal ROM, no rigidity, no stridor, no thyromegaly - Respiratory Respiratory: bilateral: CTA, negative: diminished, dullness, rales, rhonchi, wheezing - Cardiovascular Rhythm: regular Heart sounds: normal: S1, S2 Abnormal Heart Sounds: no systolic murmur, no diastolic murmur, no S3 Gallop, no S4 Gallop - Gastrointestinal General gastrointestinal: no distended, normal bowel sounds, no rigid, soft, no tenderness - Neurologic No gross focal neuro deficits noted. Neurologic: CNII-XII intact - Psychiatric Psychiatric: A&O x's 3, appropriate affect, intact judgment & insight Results Results: Preoperative blood work with CBC, compressive metabolic panel and coagulation studies were reviewed. Comments: Preoperative medical clearance was done by patient primary care provider Dr. Miner, report was reviewed. Assessment and Plan (1) Hypertension, essential, benign Narrative/Plan: Patient blood pressure will be monitored and she will be continued on home dose of lisinopril 20 mg. Current Visit: Yes Status: Acute Priority: Medium Code(s): I10 - ESSENTIAL (PRIMARY) HYPERTENSION SNOMED Code(s): 5149035 (2) Seizure disorder Narrative/Plan: Patient is on Trileptal with well controlled off her seizure disorder as reported most recent seizure was about 7 years ago, I will continue her home medications and will monitor while he she is in the hospital. Current Visit: Yes Status: Acute Priority: Medium Code(s): G40.909 - EPILEPSY, UNSP, NOT INTRACTABLE, WITHOUT STATUS EPILEPTICUS SNOMED Code(s): 491362522 (3) Gastritis Narrative/Plan: Patient does not have a history of gastroesophageal reflux disease but she does have gastritis which was confirmed via EGD as reported by the patient. I will continue proton pump inhibitor for now and patient was advised not to use nonsteroidal anti-inflammatory drugs as it may worsen the gastritis. Current Visit: Yes Status: Acute Priority: Medium Code(s): K29.70 - GASTRITIS, UNSPECIFIED, WITHOUT BLEEDING SNOMED Code(s): 6304824 (4) Osteoarthritis Narrative/Plan: Your postoperative care and pain management, I took the liberty of increasing the hydrocodone to 7.5/325 mg 1-2 tablets every 6 hours as needed depending upon the pain scale. Patient has used 5/325 mg in the past with no significant help and the pain management. She will be continued on IV Dilaudid for immediate postoperative period and her pain management will be monitored closely by the [facility] admitting team. Current Visit: Yes Status: Acute Priority: High Code(s): M19.90 - UNSPEC IFIED OSTEOARTHRITIS, UNSPECIFIED SITE SNOMED Code(s): 576785845 Plan: Thank you Dr. Urrutia for allowing us to take part in the medical management of your patient. We will continue to monitor while patient is in the hospital. Time with Patient: Less than 30
[2019-08-08] MEDS: HYDROcodone/APAP 7.5-325MG 1 EACH TAB PO PRN ×2 (17:27→23:43)
[2019-08-08] MEDS: traMADol 50 MG TAB PO PRN (20:37)
[2019-08-08] MEDS: ENOXAPARIN 30 MG/0.3 ML SYRINGE SQ SCH (20:39)
[2019-08-08] MEDS: OXcarbazepine 150 MG TAB PO SCH (20:40)
[2019-08-08] MEDS ORDERED: traZODone HCL 50 MG TAB PO SCH (21:00)
[2019-08-08] MEDS ORDERED: AMITRIPTYLINE HCL 10 MG TAB PO SCH (21:00)
[2019-08-08] MEDS ORDERED: SENNOSIDES-DOCUSATE SODIUM 1 EACH TAB PO SCH (21:00)
[2019-08-09 01:35] VITALS: TEMP 97.9
[2019-08-09] MEDS: traMADol 50 MG TAB PO PRN ×2 (02:35→08:28)
[2019-08-09] MEDS: LACTATED RINGERS 1,000 ML IV SCH (03:26)
[2019-08-09] MEDS: HYDROcodone/APAP 7.5-325MG 1 EACH TAB PO PRN (05:55)
--- NOTE | 2019-08-09 07:06 | P.PN ---
Progress Note - Text Progress Note Date: 08/09/19 Postoperative day # 1 status post total knee arthroplasty, under spinal anesthesia, and adductor canal catheter placed for postoperative analgesia, currently at ropivacaine 0.2% 8 mL per hour and continuous infusion, visual analogue scale is 3/10, patient using oral pain medication for breakthrough pain. Assessment and plan= Acute postoperative pain, adductor canal catheter for pain control, pain is well controlled we'll continue the same management.
[2019-08-09 07:08] LABS: Basophils % (A) 0 %; Eosinophils # (A) 0.2 k/uL (0-0.7); Eosinophils % (A) 2 %; HCT 29.6 % (34.0-46.0); HGB 10.3 gm/dL (11.4-16.0); Lymphocytes # (A) 3.2 k/uL (1.0-4.8); Lymphocytes % (A) 30 %; MCH 29.9 pg (25.0-35.0); MCHC 34.8 g/dL (31.0-37.0); MCV 86.1 fL (80.0-100.0); Mean Platelet Volume 7.1; Monocytes # (A) 0.6 k/uL (0-1.0); Monocytes % (A) 6 %; Neutrophils # (A) 6.6 k/uL (1.3-7.7); Neutrophils % (A) 61 %; Platelet Count 222 k/uL (150-450); RBC 3.43 m/uL (3.80-5.40); RDW 14.3 % (11.5-15.5); WBC 10.9 k/uL (3.8-10.6)
[2019-08-09] MEDS ORDERED: PANTOPRAZOLE 40 MG TABLET PO SCH (07:30)
--- NOTE | 2019-08-09 07:40 | P.PN ---
Progress Note - Text Progress Note Date: 08/09/19 Patient seen lying in bed comfortably. She does report some left knee pain. She has been ambulatory with her walker. Incision stable. Homans and Reynaldo negative. Distal neurovascular exam is intact. Impression: Status post left total knee arthroplasty Plan: Physical therapy DVT prophylaxis We will plan discharge home today
[2019-08-09 07:45] VITALS: BP 99/57; PULSE 52; RESP 14
--- NOTE | 2019-08-09 07:50 | P.DS ---
Providers Date of admission: 08/08/19 05:54 Attending physician: João Urrutia Consults: 08/08/19 09:12 Consult Physician Routine Consulting Provider: Barrie Physician Consult Reason/Comments: Medical management Do you want consulting provider notified?: Yes Primary care physician: Mela Miner MD Hospital Course: Date of admission: 08/08/19 Date of discharge: 08/09/19 Admission diagnosis: Left total knee arthroplasty Discharge diagnosis: Left total knee arthroplasty Attending physician: João Urrutia DO Surgical procedure: Left total knee arthroplasty Brief history: Patient is a 53-year-old with a history of symptomatic left knee osteoarthritis. At this point patient has failed outpatient conservative treatment measures and has opted to proceed with an elective total knee arthroplasty. Hospital course: Details the patient surgery can be found in the operative report. Patient tolerated the procedure well and was subsequently transported to orthopedic floor. Patient orthopedic and medical care was provided daily. Patient had daily laboratory tests performed for evaluation of overall blood counts. Patient had daily physical therapy to include strengthening, range of motion as well as education with walker ambulation. Patient was treated with Lovenox for the postoperative DVT prophylaxis during there inpatient stay. Patient noted to have a relatively uneventful postoperative course. Patient reported satisfactory pain control with oral pain medication by postoperative day 1. Patient showed satisfactory progress with physical therapy. Patient removed steadily through the program and had no difficulty meeting goals by postop day 1. Given patient's otherwise satisfactory course and having met physical therapy goals, plan is to discharge patient to home on postoperative day 1. Discharge condition/disposition: Patient discharged to [home] in stable and satisfactory condition. Discharge medications: Patient is prescribed home medications per medicine as well as appropriate oral analgesics and anticoagulants. Discharge instructions: 1. Wound care and infectious precautions, keep incision dry and covered while showering, no lotions, creams, moisturized. No soaking, tubs, pools, hot tubs. Do not scrub over the incision 2. Weight-bear [as tolerated] with walker/cane until follow-up 3. Ice and elevate when necessary. Do not exceed 20 minutes per hour with ice pack. 4. Utilize compression sleeve until seen first postoperative appointment. 5. Visiting nursing care 6. Home physical therapy [including home CPM]. 7. Pain meds and anticoagulations per prescription 8. Pain medication has potential to cause constipation. Increase oral fluid and fiber intake. Contact primary care provider if you have not had a bowel movement within 48 hours after discharge. 9. No anti-inflammatory medication until discussed the first postoperative visit, this includes Motrin, Aleve, Mobic, diclofenac, [aspirin]. 10. Follow-up in [facility] in 2 weeks with Jacob Garcia PA-C 11. Follow up with your primary care doctor 7-10 days after discharge. 12. Contact [facility] with any questions, Patient Condition at Discharge: Good Plan - Discharge Summary Discharge Rx Participant: Yes New Discharge Prescriptions: New Aspirin [Adult Low Dose Aspirin EC] 81 mg PO BID #60 tablet. Docusate [Colace] 100 mg PO DAILY #30 capsule HYDROcodone/APAP 7.5-325MG [Pindall 7.5-325] 1 - 2 each PO Q6HR PRN #56 tab PRN Reason: Pain traMADol HCL [Ultram] 50 mg PO Q6HR PRN 7 Days #28 tab PRN Reason: Pain No Action OXcarbazepine [Trileptal] 450 mg PO BID Cholecalciferol [Vitamin D3] 2,000 unit PO DAILY traZODone HCL 50 mg PO HS Amitriptyline HCl [Elavil] 20 mg PO HS Lisinopril [Zestril] 20 mg PO DAILY Omeprazole [PriLOSEC] 20 mg PO -[facility] Discharge Medication List Cholecalciferol [Vitamin D3] 2,000 unit PO DAILY 01/26/17 [History] OXcarbazepine [Trileptal] 450 mg PO BID 01/26/17 [History] Amitriptyline HCl [Elavil] 20 mg PO HS 09/23/18 [History] traZODone HCL 50 mg PO HS 09/23/18 [History] Lisinopril [Zestril] 20 mg PO DAILY 08/02/19 [History] Omeprazole [PriLOSEC] 20 mg PO AC-BRKFST 08/02/19 [History] Aspirin [Adult Low Dose Aspirin EC] 81 mg PO BID #60 tablet. 08/09/19 [Rx] Docusate [Colace] 100 mg PO DAILY #30 capsule 08/09/19 [Rx] HYDROcodone/APAP 7.5-325MG [Pindall 7.5-325] 1 - 2 each PO Q6HR PRN #56 tab 08/09/19 [Rx] traMADol HCL [Ultram] 50 mg PO Q6HR PRN 7 Days #28 tab 08/09/19 [Rx] Follow up Appointment(s)/Referral(s): Dano Garcia, PAC [PHYSICIAN PURIFICATION SUPERVISOR] - 2 Weeks Activity/Diet/Wound Care/Special Instructions: Orthopedic discharge instructions: 1. Wound care infection precautions keep incision dry and covered while showering, no lotions, creams, moisturizers. No soaking, pools, hot tubs. Do not scrub over incision. 2. Weight-bear [as tolerated] with walker/cane until follow-up 3. Ice and elevate when necessary. Do not exceed 20 minutes per hour with ice pack. 4. Utilize compression sleeve until seen at first follow-up appointment. 5. Pain meds and anticoagulation per prescription. 6. Pain medication is potential to cause constipation. Increase oral fluids and fiber. Contact primary care provider. Has not had a bowel movement within 48 hours of discharge. 7. No anti-inflammatory medication and discussed at first postop visit, this includes Motrin, Aleve, Mobic, diclofenac. 8. Follow up in office at 2 weeks postoperatively with Jacob Garcia PA-C 9. Follow-up with primary care doctor within 7-10 days after discharge. 10. Contact [facility] with any questions, Discharge Disposition: HOME WITH HOME HEALTH SERVICES
[2019-08-09] MEDS: ENOXAPARIN 30 MG/0.3 ML SYRINGE SQ SCH (08:27)
[2019-08-09] MEDS: OXcarbazepine 150 MG TAB PO SCH (08:28)
[2019-08-09] MEDS ORDERED: CHOLECALCIFEROL 1,000 UNIT TAB PO SCH (09:00)
[2019-08-09] MEDS ORDERED: LISINOPRIL 20 MG TAB PO SCH (09:00)
[2019-08-09] MEDS ORDERED: MELOXICAM 7.5 MG TAB PO SCH (09:00)
--- NOTE | 2019-08-09 10:05 | P.PN ---
Subjective Progress Note Date: 08/09/19 Patient reports that she is feeling better and pain management since Percocet was increase. Patient stated that she had worked with the therapy and now her knee is sore from behind. It was noted that patient blood pressure is running into low 100s and high 90s, her Lisinopril was held this morning. Pt. had symptoms of nausea and lightheaded and was given Zofran with improvement in symptoms. Patient denies chest pain, palpitation, diaphoresis, headaches and denies rest of the review system. Objective - Vital Signs Vital signs: Vital Signs Temp 97.9 F 08/09/19 07:00 Pulse 52 L 08/09/19 07:00 Resp 14 08/09/19 07:00 BP 99/57 08/09/19 07:00 Pulse Ox 99 08/09/19 07:00 Intake & Output 08/08/19 08/09/19 08/09/19 18:59 06:59 18:59 Intake Total 1031 1360 Output Total 40 Balance 991 1360 Intake: IV 851 Intake, IV Titration 1000 Amount Lactated Ringers 1,000 ml 950 @ 100 mls/hr IV .Q10H MARK Rx#:[id number] ceFAZolin 2 gm In Sodium 50 Chloride 0.9% 50 ml @ 100 mls/hr IVPB Q8HR MARK Rx# :[id number] Oral 180 360 Output: Estimated Blood Loss 40 Other: Voiding Method Toilet # Voids 1 - Constitutional General appearance: Present: cooperative, no acute distress - Respiratory Respiratory: bilateral: CTA, negative: rales, rhonchi, wheezing - Cardiovascular Rhythm: regular Heart sounds: normal: S1, S2 Abnormal Heart Sounds: Absent: systolic murmur, diastolic murmur, S3 Gallop, S4 Gallop - Gastrointestinal General gastrointestinal: Present: normal bowel sounds, soft. Absent: distended, rigid, tenderness - Integumentary Integumentary: Present: normal, normal turgor - Neurologic Neurologic: Present: CNII-XII intact. Absent: focal deficits - Psychiatric Psychiatric: Present: A&O x's 3, appropriate affect, intact judgment & insight - Allied health notes Allied health notes reviewed: nursing - Labs CBC & Chem 7: 08/09/19 06:08 Labs: Abnormal Lab Results - Last 24 Hours (Table) 08/09/19 Range/Units 06:08 WBC 10.9 H (3.8-10.6) k/uL RBC 3.43 L (3.80-5.40) m/uL Hgb 10.3 L (11.4-16.0) gm/dL Hct 29.6 L (34.0-46.0) % Assessment and Plan (1) Hypertension, essential, benign Current Visit: Yes Status: Acute Priority: Medium Code(s): I10 - ESSENTIAL (PRIMARY) HYPERTENSION SNOMED Code(s): 4513682 (2) Seizure disorder Current Visit: Yes Status: Acute Priority: Medium Code(s): G40.909 - EPILEPSY, UNSP, NOT INTRACTABLE, WITHOUT STATUS EPILEPTICUS SNOMED Code(s): 718600974 (3) Gastritis Current Visit: Yes Status: Acute Priority: Medium Code(s): K29.70 - GASTRITIS, UNSPECIFIED, WITHOUT BLEEDING SNOMED Code(s): 6427542 (4) Osteoarthritis Current Visit: Yes Status: Acute Priority: High Code(s): M19.90 - UNSPECIFIED OSTEOARTHRITIS, UNSPECIFIED SITE SNOMED Code(s): 539423770 Plan: Patient was given education about check her blood pressure and if it is running low to cut down her lisinopril into half and take one half pill in the morning for blood pressure control. If her systolic blood pressure runs around 100 in the morning that she should be holding her lisinopril. Patient verbalizes understanding. Patient's home medication will be resumed at the time of simon vazquez no changes, other than above are suggested at this time. Patient reported that she will be working with the therapy and if therapy passes her which most likely will be that she will be going home later today. Again thank you for allowing us in taking care in the medical management of her patient. We will sign off, please call us if patient stays any further and he needs further assistance in medical management. Time with Patient: Less than 30
== END 2019-08-09 12:15 | disposition home health service (06) | DRG 470 ==
LOC: 2ORMAIN 05:54 → 4SSUR 09:03
PROVIDERS: ADMIT Orthopaedic Surgery; ATTEND Orthopaedic Surgery
PROC: 0SRD0J9 Replacement of Left Knee Joint with Synthetic Substitute, Cemented, Open Approach (ICD-10-PCS; principal; 2019-08-08 07:30)
DX: M17.12 Unilateral primary osteoarthritis, left knee (principal); G40.919 Epilepsy, unspecified, intractable, without status epilepticus; G89.18 Other acute postprocedural pain; K29.70 Gastritis, unspecified, without bleeding; I10 Essential (primary) hypertension; K21.9 Gastro-esophageal reflux disease without esophagitis; E78.5 Hyperlipidemia, unspecified; G47.9 Sleep disorder, unspecified; F41.8 Other specified anxiety disorders; E66.9 Obesity, unspecified; Z68.34 Body mass index [BMI] 34.0-34.9, adult; Z79.899 Other long term (current) drug therapy; Z98.890 Other specified postprocedural states; Z86.010 Personal history of colon polyps; Z98.51 Tubal ligation status; Z83.3 Family history of diabetes mellitus; Z82.49 Family history of ischemic heart disease and other diseases of the circulatory system; Z88.2 Allergy status to sulfonamides; Z82.3 Family history of stroke; Z80.1 Family history of malignant neoplasm of trachea, bronchus and lung; Z80.3 Family history of malignant neoplasm of breast; Z80.0 Family history of malignant neoplasm of digestive organs; Z82.0 Family history of epilepsy and other diseases of the nervous system; Z83.511 Family history of glaucoma
CPT/HCPCS: 64448; 81025; 85025; 88300

== ENCOUNTER → 2020-01-30 | Outpatient (CLI) | payer MEDICAID ==
--- NOTE | 2020-01-31 10:09 | XR ---
EXAMINATION TYPE: XR chest 2V DATE OF EXAM: 01/30/2020 COMPARISON: None INDICATION: Neck pain cough short of breath TECHNIQUE: Frontal and lateral views of the chest are obtained. FINDINGS: The heart size is normal. The pulmonary vasculature is normal. The lungs are clear. Spondylosis within the thoracic spine. IMPRESSION: 1. No acute pulmonary process.
--- NOTE | 2020-01-31 10:10 | XR ---
EXAMINATION TYPE: XR soft tissue neck DATE OF EXAM: 01/30/2020 COMPARISON: None HISTORY: Neck pain, cough TECHNIQUE: 2 view soft tissue neck FINDINGS: Prevertebral space is normal. Small anterior vertebral body spurs are noted C5-6. Posterior spinal lamellar line appears intact. Epiglottis is unremarkable. Subglottic airway is visualized francesca ears normal. IMPRESSION: 1. Normal soft tissue neck
== END | disposition home or self-care (01) ==
LOC: RADXRMAIN 16:52
PROVIDERS: ATTEND Family Medicine
DX: R05 Cough (principal); M54.2 Cervicalgia; R06.02 Shortness of breath
CPT/HCPCS: 70360; 71046

== ENCOUNTER → 2020-05-25 | Outpatient (CLI) | payer MEDICAID ==
[2020-05-25 14:11] LABS: Basophils % (A) 0 %; Eosinophils # (A) 0.2 k/uL (0-0.7); Eosinophils % (A) 3 %; HCT 34.5 % (34.0-46.0); HGB 11.2 gm/dL (11.4-16.0); Lymphocytes # (A) 2.1 k/uL (1.0-4.8); Lymphocytes % (A) 36 %; MCH 29.2 pg (25.0-35.0); MCHC 32.5 g/dL (31.0-37.0); MCV 89.7 fL (80.0-100.0); Mean Platelet Volume 6.8; Monocytes # (A) 0.4 k/uL (0-1.0); Monocytes % (A) 7 %; Neutrophils # (A) 3.1 k/uL (1.3-7.7); Neutrophils % (A) 53 %; Platelet Count 267 k/uL (150-450); RBC 3.85 m/uL (3.80-5.40); RDW 13.1 % (11.5-15.5); WBC 5.9 k/uL (3.8-10.6)
[2020-05-25 16:16] LABS: Erythrocyte Sedimentation Rate 12 mm/hr (0-20)
[2020-05-25 19:13] LABS: African American GFR (CKD) 113.8 (60.0-200.0); Albumin 4.4 g/dL (3.80-4.90); Albumin/Globulin Ratio 1.83 (1.60-3.17); Anion Gap 7.1 mmol/L (4.00-12.00); BUN/Creat Ratio 12.86 Ratio (12.00-20.00); Calcium 9.3 mg/dL (8.7-10.3); Carbon Dioxide 23.9 mmol/L (21.6-31.8); Globulin 2.4 g/dL (1.6-3.3); Non-African American GFR(CKD) 98.2 (60.0-200.0); Potassium 4.3 mmol/L (3.5-5.5); Total Bilirubin 0.3 mg/dL (0.2-1.2); Total Protein 6.8 g/dL (6.2-8.2)
== END | disposition home or self-care (01) ==
LOC: LABWHC1 13:17
PROVIDERS: ATTEND Psychiatry & Neurology Neurology
DX: M79.10 Myalgia, unspecified site (principal); T50.995A Adverse effect of other drugs, medicaments and biological substances, initial encounter; K21.9 Gastro-esophageal reflux disease without esophagitis
CPT/HCPCS: 36415; 80053; 82550; 82607; 85025; 85652; 86038

== ENCOUNTER → 2020-12-13 | Outpatient (CLI) | payer MEDICAID ==
--- NOTE | 2020-12-14 14:31 | MM ---
Reason for exam: screening (asymptomatic). Last mammogram was performed 2 years and 2 months ago. History: Family history of breast cancer in paternal grandmother and breast cancer in maternal aunt. Taking hormonal contraceptives for 22 years beginning at age 20. Physical Findings: A clinical breast exam by your physician is recommended on an annual basis and results should be correlated with mammographic findings. MG 3D Screening Mammo W/Cad Bilateral CC and MLO view(s) were taken. Prior study comparison: October 25, 2018, bilateral MG 3d screening mammo w/cad. February 15, 2016, bilateral MG 3d screening mammo w/cad. The breast tissue is heterogeneously dense. This may lower the sensitivity of mammography. There are benign appearing round calcifications in the right breast. There is no discrete abnormality. ASSESSMENT: Benign, BI-RAD 2 RECOMMENDATION: Routine screening mammogram of both breasts in 1 year.
== END | disposition home or self-care (01) ==
LOC: RADMAMWWP 15:12
PROVIDERS: ATTEND Obstetrics & Gynecology
DX: Z12.31 Encounter for screening mammogram for malignant neoplasm of breast (principal); Z80.3 Family history of malignant neoplasm of breast
CPT/HCPCS: 77063; 77067

== ENCOUNTER → 2021-06-17 | Outpatient (CLI) | payer MEDICAID | LOC: NEUROMAIN 09:19 | PROVIDERS: ATTEND Psychiatry & Neurology Neurology | DX: R41.3 Other amnesia (principal); G40.909 Epilepsy, unspecified, not intractable, without status epilepticus; Z88.2 Allergy status to sulfonamides | CPT/HCPCS: 95816 ==

== ENCOUNTER → 2022-02-24 | Outpatient (CLI) | payer MEDICAID, OTHER ==
[2022-02-24 14:37] LABS: Basophils # (A) 0.03 X 10*3/uL (0.00-0.10); Basophils % (A) 0.5 %; Eosinophils # (A) 0.11 X 10*3/uL (0.04-0.35); Eosinophils % (A) 1.9 %; HCT 35.8 % (37.2-46.3); HGB 11.3 g/dL (12.0-15.0); Immature Grans, Automated 0.2 %; Lymphocytes # (A) 2.02 X 10*3/uL (0.90-5.00); Lymphocytes % (A) 34.2 %; MCH 28.9 pg (27.0-32.0); MCHC 31.6 g/dL (32.0-37.0); MCV 91.6 fL (80.0-97.0); Mean Platelet Volume 8.9 fL (9.5-12.2); Monocytes # (A) 0.41 X 10*3/uL (0.20-1.00); Monocytes % (A) 6.9 %; NRBC Per 100 WBC 0 /100 WBCS (0.0-0.0); Neutrophils # (A) 3.33 X 10*3/uL (1.80-7.70); Neutrophils % (A) 56.3 %; Platelet Count 294 X 10*3/uL (140-440); RBC 3.91 X 10*6/uL (4.10-5.20); RDW 13.4 % (11.5-14.5); WBC 5.91 X 10*3/uL (4.50-10.00)
[2022-02-24 15:26] LABS: ALT 37 U/L (8-44); AST 17 U/L (13-35); African American GFR (CKD) 112.3 (60.0-200.0); Albumin 4.6 g/dL (3.8-4.9); Albumin/Globulin Ratio 1.64 (1.60-3.17); Alkaline Phosphatase 85 U/L (41-126); BUN/Creat Ratio 15.71 Ratio (12.00-20.00); Calcium 9.5 mg/dL (8.7-10.3); Carbon Dioxide 22.4 mmol/L (20.0-27.5); Chloride 100 mmol/L (96-109); Globulin 2.8 g/dL (1.6-3.3); Glucose 115 mg/dL (70-110); Non-African American GFR(CKD) 96.9 (60.0-200.0); Potassium 4.7 mmol/L (3.5-5.5); Sodium 135 mmol/L (135-145); Total Bilirubin <0.15 mg/dL (0.30-1.20); Total Protein 7.4 g/dL (6.2-8.2)
== END | disposition home or self-care (01) ==
LOC: LABWHC1 08:10
PROVIDERS: ATTEND Psychiatry & Neurology Neurology
DX: Z51.81 Encounter for therapeutic drug level monitoring (principal); G40.909 Epilepsy, unspecified, not intractable, without status epilepticus
CPT/HCPCS: 36415; 80053; 80183; 85025

== ENCOUNTER → 2022-08-22 | Outpatient (CLI) | payer MEDICAID ==
[2022-08-22 10:55] LABS: Basophils # (A) 0.02 X 10*3/uL (0.00-0.10); Basophils % (A) 0.4 %; Eosinophils # (A) 0.11 X 10*3/uL (0.04-0.35); Eosinophils % (A) 2.1 %; HCT 36.2 % (37.2-46.3); HGB 11.9 g/dL (12.0-15.0); Immature Grans, Automated 0.2 %; Lymphocytes # (A) 2.17 X 10*3/uL (0.90-5.00); Lymphocytes % (A) 40.8 %; MCH 28.5 pg (27.0-32.0); MCHC 32.9 g/dL (32.0-37.0); MCV 86.8 fL (80.0-97.0); Mean Platelet Volume 8.8 fL (9.5-12.2); Monocytes # (A) 0.38 X 10*3/uL (0.20-1.00); Monocytes % (A) 7.1 %; NRBC Per 100 WBC 0 /100 WBCS (0.0-0.0); Neutrophils # (A) 2.63 X 10*3/uL (1.80-7.70); Neutrophils % (A) 49.4 %; Platelet Count 329 X 10*3/uL (140-440); RBC 4.17 X 10*6/uL (4.10-5.20); RDW 13.2 % (11.5-14.5); WBC 5.32 X 10*3/uL (4.50-10.00)
[2022-08-22 11:26] LABS: ALT 21 U/L (8-44); AST 17 U/L (13-35); African American GFR (CKD) 115.3 (60.0-200.0); Albumin 4.5 g/dL (3.8-4.9); Albumin/Globulin Ratio 1.51 (1.60-3.17); Alkaline Phosphatase 87 U/L (41-126); BUN/Creat Ratio 14.47 Ratio (12.00-20.00); Blood Urea Nitrogen 9.4 mg/dL (9.0-27.0); Calcium 9.5 mg/dL (8.7-10.3); Carbon Dioxide 20.8 mmol/L (20.0-27.5); Chloride 93 mmol/L (96-109); Chol/HDL Ratio 3.41 Ratio; Glucose 117 mg/dL (70-110); LDL Cholesterol,Calculated 151.9 mg/dL (0.0-131.0); Non-African American GFR(CKD) 99.5 (60.0-200.0); Potassium 4.7 mmol/L (3.5-5.5); Sodium 127 mmol/L (135-145); Total Protein 7.5 g/dL (6.2-8.2)
== END | disposition home or self-care (01) ==
LOC: LABWHC1 07:39
PROVIDERS: ATTEND Physician Assistant Medical
DX: I10 Essential (primary) hypertension (principal); R53.83 Other fatigue
CPT/HCPCS: 36415; 80053; 80061; 82306; 83036; 84439; 84443; 85025

== ENCOUNTER → 2022-08-25 | Outpatient (CLI) | payer MEDICAID ==
--- NOTE | 2022-08-26 10:51 | MM ---
Reason for Exam: Screening (asymptomatic). Last mammogram was performed 1 year(s) and 8 month(s) ago. Patient History: Menarche at age 11. First Full-Term at age 30. Late child-bearing (after 30). Hormonal Contraceptives, starting at age 20 for 22 years. Paternal grandmother had breast cancer, age 75. Risk Values: Ilsa 5 year model risk: 1.9%. NCI Lifetime model risk: 11.9%. Prior Study Comparison: 02/15/2016 Bilateral Screening Mammogram, [facility]. 10/25/2018 Bilateral Screening Mammogram, [facility]. 12/13/2020 Bilateral Screening Mammogram, [facility]. Tissue Density: The breast tissue is heterogeneously dense. This may lower the sensitivity of mammography. Findings: Analyzed By CAD. Redemonstrated global asymmetry superior right MLO view. No significant change from prior exams. Overall Assessment: Benign, BI-RAD 2 Management: Screening Mammogram of both breasts in 1 year. 1. Patient should continue monthly self breast exams. 2. A clinical breast exam by your physician is recommended on an annual basis. 3. This exam should not preclude additional follow-up of suspicious palpable abnormalities. Electronically signed and approved by: Eddie Mansfield M.D. Radiologist
== END | disposition home or self-care (01) ==
LOC: RADMAMWWP 11:13
PROVIDERS: ATTEND Family Medicine
DX: Z12.31 Encounter for screening mammogram for malignant neoplasm of breast (principal); Z80.3 Family history of malignant neoplasm of breast
CPT/HCPCS: 77063; 77067

== ENCOUNTER → 2022-08-29 | Outpatient (CLI) | payer MEDICAID ==
[2022-08-29 18:48] LABS: African American GFR (CKD) 112.3 (60.0-200.0); Albumin 4.6 g/dL (3.8-4.9); Albumin/Globulin Ratio 1.39 (1.60-3.17); Anion Gap 11.5 mmol/L (10.00-18.00); BUN/Creat Ratio 11.71 Ratio (12.00-20.00); Blood Urea Nitrogen 8.2 mg/dL (9.0-27.0); Calcium 9.4 mg/dL (8.7-10.3); Carbon Dioxide 24.5 mmol/L (20.0-27.5); Globulin 3.3 g/dL (1.6-3.3); Magnesium 1.9 mg/dL (1.5-2.4); Non-African American GFR(CKD) 96.9 (60.0-200.0); Potassium 4.7 mmol/L (3.5-5.5); Total Bilirubin 0.4 mg/dL (0.30-1.20); Total Protein 7.9 g/dL (6.2-8.2)
[2022-08-30 23:14] LABS: C-Peptide 3.29 ng/mL (0.81-3.85)
== END | disposition home or self-care (01) ==
LOC: LABWHC1 13:37
PROVIDERS: ATTEND Physician Assistant Medical
DX: I10 Essential (primary) hypertension (principal); E87.1 Hypo-osmolality and hyponatremia; E11.65 Type 2 diabetes mellitus with hyperglycemia; G40.909 Epilepsy, unspecified, not intractable, without status epilepticus
CPT/HCPCS: 36415; 80053; 83735; 84681

== ENCOUNTER → 2022-08-30 | Outpatient (CLI) | payer MEDICAID | END | disposition home or self-care (01) | LOC: LABWHC1 08:22 | PROVIDERS: ATTEND Psychiatry & Neurology Neurology | DX: G40.919 Epilepsy, unspecified, intractable, without status epilepticus (principal); E87.1 Hypo-osmolality and hyponatremia | CPT/HCPCS: 36415; 80183 ==

== ENCOUNTER 2022-09-30 08:09 | Emergency (ER) | payer MEDICAID ==
[2022-09-30] MEDS ORDERED: SODIUM CHLORIDE 0.9% 500 ML 500 ML IV STA (08:11)
[2022-09-30] MEDS ORDERED: LORazepam 2 MG/ML INJ IV STA (08:12)
[2022-09-30 08:15] VITALS: RESP 18
--- NOTE | 2022-09-30 08:23 | ED ---
General Adult HPI - General Chief complaint: Dizziness Stated complaint: syncope Time Seen by Provider: 09/30/22 08:11 Source: patient, RN/MD, RN notes reviewed Mode of arrival: wheelchair Limitations: no limitations - History of Present Illness Initial comments: This a 56-year-old female presents emergency Department with chief complaint of abdominal pain, shortness of breath. Patient states she started having abdominal comfort from lower aspect and over the bathroom she had near syncopal episode. She states she felt like she has not passed out merely pulled up pants and states that she became very diaphoretic and felt short of breath. At this point a A team was called in the hospital and patient was brought to emergency department. Patient was having acute anxiety, shortness of breath became severe diaphoretic. She denies any chest pain she has meant that she is epileptic, has a history of diabetes on was on ozempic. Patient denies any back pain, flank pain no history kidney stones she is did admit to some nausea without vomiting. - Related Data Home Medications Medication Instructions Recorded Confirmed Cholecalciferol [Vitamin D3 (25 2,000 unit PO DAILY 01/26/17 08/08/19 Mcg = 1000 Iu)] OXcarbazepine [Trileptal] 450 mg PO BID 01/26/17 08/08/19 Amitriptyline HCl [Elavil] 20 mg PO HS 09/23/18 08/08/19 traZODone HCL 50 mg PO HS 09/23/18 08/08/19 Omeprazole [PriLOSEC] 20 mg PO AC-BRKFST 08/02/19 08/08/19 lisinopriL [Zestril] 20 mg PO DAILY 08/02/19 08/08/19 Previous Rx's Medication Instructions Recorded Aspirin [Adult Low Dose Aspirin EC] 81 mg PO BID #60 tablet. 08/09/19 Docusate [Colace] 100 mg PO DAILY #30 capsule 08/09/19 HYDROcodone/APAP 7.5-325MG [[place] 1 - 2 each PO Q6HR PRN #56 tab 08/09/19 7.5-325] traMADol HCL [Ultram] 50 mg PO Q6HR PRN 7 Days #28 tab 08/09/19 Allergies Allergy/AdvReac Type Severity Reaction Status Date / Time Sulfa (Sulfonamide Allergy Rash/Hives Verified 09/30/22 08:15 Antibiotics) Review of Systems ROS Statement: Those systems with pertinent positive or pertinent negative responses have been documented in the HPI. ROS Other: All systems not noted in ROS Statement are negative. Past Medical History Past Medical History: Hypertension, Seizure Disorder Additional Past Medical History / Comment(s): epigastric pain, especially after eating, last seizure 2011, diabetes, hyponatremia, History of Any Multi-Drug Resistant Organisms: None Reported Past Surgical History: Tubal Ligation, Uterine Ablation Additional Past Surgical History / Comment(s): Eye surgery, left knee arthroscopy. Past Anesthesia/Blood Transfusion Reactions: No Reported Reaction Past Psychological History: Anxiety Smoking Status: Never smoker Past Alcohol Use History: Rare Past Drug Use History: None Reported - Past Family History Mother Family Medical History: Coronary Artery Disease (CAD), Diabetes Mellitus General Exam Limitations: no limitations General appearance: alert, in no apparent distress Head exam: Present: atraumatic, normocephalic, normal inspection Neck exam: Present: normal inspection. Absent: tenderness, meningismus, lymphadenopathy Respiratory exam: Present: normal lung sounds bilaterally. Absent: respiratory distress, wheezes, rales, rhonchi, stridor Cardiovascular Exam: Present: regular rate, normal rhythm, normal heart sounds. Absent: systolic murmur, diastolic murmur, rubs, gallop, clicks GI/Abdominal exam: Present: soft, tenderness, normal bowel sounds. Absent: distended, guarding, rebound, rigid Back exam: Absent: CVA tenderness (R), CVA tenderness (L) Neurological exam: Present: alert, oriented X3 Skin exam: Present: warm, dry, intact, normal color. Absent: rash Course Vital Signs 09/30/22 09/30/22 09/30/22 08:10 09:15 10:15 Temperature 97.9 F Pulse Rate 85 75 76 Respiratory 18 18 18 Rate Blood Pressure 127/81 132/94 150/87 O2 Sat by Pulse 98 97 99 Oximetry Medical Decision Making - Medical Decision Making 56-year-old female presented for abdominal pain, near syncopal episode. Patient greatly improved at this time patient is elevated d-dimer CT of the chest was performed rule out PE. Patient was went abdominal pain which started her s ymptoms she has a mild constipation but no other acute findings. Patient will be discharged in stable condition follow-up return parameters were discussed. - Lab Data Result diagrams: 09/30/22 08:21 09/30/22 08:21 Lab Results 09/30/22 09/30/22 09/30/22 Range/Units 08:21 08:21 08:21 WBC 4.3 (3.8-10.6) k/uL RBC 4.07 (3.80-5.40) m/uL Hgb 12.1 (11.4-16.0) gm/dL Hct 35.7 (34.0-46.0) % MCV 87.6 (80.0-100.0) fL MCH 29.6 (25.0-35.0) pg MCHC 33.8 (31.0-37.0) g/dL RDW 12.7 (11.5-15.5) % Plt Count 270 (150-450) k/uL MPV 7.0 Neutrophils % 46 % Lymphocytes % 40 % Monocytes % 8 % Eosinophils % 4 % Basophils % 1 % Neutrophils # 2.0 (1.3-7.7) k/uL Lymphocytes # 1.7 (1.0-4.8) k/uL Monocytes # 0.3 (0-1.0) k/uL Eosinophils # 0.2 (0-0.7) k/uL Basophils # 0.0 (0-0.2) k/uL D-Dimer (<0.60) mg/L FEU Sodium 131 L (137-145) mmol/L Potassium 4.1 (3.5-5.1) mmol/L Chloride 98 (98-107) mmol/L Carbon Dioxide 19 L (22-30) mmol/L Anion Gap 14 mmol/L BUN 10 (7-17) mg/dL Creatinine 0.68 (0.52-1.04) mg/dL Est GFR (CKD-EPI)AfAm >90 (>60 ml/min/1.73 sqM) Est GFR (CKD-EPI)NonAf >90 (>60 ml/min/1.73 sqM) Glucose 119 H (74-99) mg/dL POC Glucose (mg/dL) (70-110) mg/dL POC Glu Skin Diving Teacher ID Plasma Lactic Acid Chacho 1.7 (0.7-2.0) mmol/L Calcium 9.1 (8.4-10.2) mg/dL Total Bilirubin 0.5 (0.2-1.3) mg/dL AST 26 (14-36) U/L ALT 28 (4-34) U/L Alkaline Phosphatase 86 (38-126) U/L Troponin I (0.000-0.034) ng/mL NT-Pro-B Natriuret Pep pg/mL Total Protein 7.4 (6.3-8.2) g/dL Albumin 4.7 (3.5-5.0) g/dL Lipase 186 (23-300) U/L Urine Color Urine Appearance (Clear) Urine pH (5.0-8.0) Ur Specific Kensal (1.001-1.035) Urine Protein (Negative) Urine Glucose (UA) (Negative) Urine Ketones (Negative) Urine Blood (Negative) Urine Nitrite (Negative) Urine Bilirubin (Negative) Urine Urobilinogen (<2.0) mg/dL Ur Leukocyte Esterase (Negative) Urine RBC (0-5) /hpf Urine WBC (0-5) /hpf Ur Squamous Epith Cells (0-4) /hpf Urine Bacteria (None) /hpf Hyaline Casts (0-2) /lpf Urine Mucus (None) /hpf 09/30/22 09/30/22 09/30/22 Range/Units 08:21 08:21 08:21 WBC (3.8-10.6) k/uL RBC (3.80-5.40) m/uL Hgb (11.4-16.0) gm/dL Hct (34.0-46.0) % MCV (80.0-100.0) fL MCH (25.0-35.0) pg MCHC (31.0-37.0) g/dL RDW (11.5-15.5) % Plt Count (150-450) k/uL MPV Neutrophils % % Lymphocytes % % Monocytes % % Eosinophils % % Basophils % % Neutrophils # (1.3-7.7) k/uL Lymphocytes # (1.0-4.8) k/uL Monocytes # (0-1.0) k/uL Eosinophils # (0-0.7) k/uL Basophils # (0-0.2) k/uL D-Dimer 2.16 H (<0.60) mg/L FEU Sodium (137-145) mmol/L Potassium (3.5-5.1) mmol/L Chloride (98-107) mmol/L Carbon Dioxide (22-30) mmol/L Anion Gap mmol/L BUN (7-17) mg/dL Creatinine (0.52-1.04) mg/dL Est GFR (CKD-EPI)AfAm (>60 ml/min/1.73 sqM) Est GFR (CKD-EPI)NonAf (>60 ml/min/1.73 sqM) Glucose (74-99) mg/dL POC Glucose (mg/dL) (70-110) mg/dL POC Glu Skin Diving Teacher ID Plasma Lactic Acid Chacho (0.7-2.0) mmol/L Calcium (8.4-10.2) mg/dL Total Bilirubin (0.2-1.3) mg/dL AST (14-36) U/L ALT (4-34) U/L Alkaline Phosphatase (38-126) U/L Troponin I <0.012 (0.000-0.034) ng/mL NT-Pro-B Natriuret Pep 54 pg/mL Total Protein (6.3-8.2) g/dL Albumin (3.5-5.0) g/dL Lipase (23-300) U/L Urine Color Urine Appearance (Clear) Urine pH (5.0-8.0) Ur Specific [place] (1.001-1.035) Urine Protein (Negative) Urine Glucose (UA) (Negative) Urine Ketones (Negative) Urine Blood (Negative) Urine Nitrite (Negative) Urine Bilirubin (Negative) Urine Urobilinogen (<2.0) mg/dL Ur Leukocyte Esterase (Negative) Urine RBC (0-5) /hpf Urine WBC (0-5) /hpf Ur Squamous Epith Cells (0-4) /hpf Urine Bacteria (None) /hpf Hyaline Casts (0-2) /lpf Urine Mucus (None) /hpf 09/30/22 09/30/22 Range/Units 08:22 10:32 WBC (3.8-10.6) k/uL RBC (3.80-5.40) m/uL Hgb (11.4-16.0) gm/dL Hct (34.0-46.0) % MCV (80.0-100.0) fL MCH (25.0-35.0) pg MCHC (31.0-37.0) g/dL RDW (11.5-15.5) % Plt Count (150-450) k/uL MPV Neutrophils % % Lymphocytes % % Monocytes % % Eosinophils % % Basophils % % Neutrophils # (1.3-7.7) k/uL Lymphocytes # (1.0-4.8) k/uL Monocytes # (0-1.0) k/uL Eosinophils # (0-0.7) k/uL Basophils # (0-0.2) k/uL D-Dimer (<0.60) mg/L FEU Sodium (137-145) mmol/L Potassium (3.5-5.1) mmol/L Chloride (98-107) mmol/L Carbon Dioxide (22-30) mmol/L Anion Gap mmol/L BUN (7-17) mg/dL Creatinine (0.52-1.04) mg/dL Est GFR (CKD-EPI)AfAm (>60 ml/min/1.73 sqM) Est GFR (CKD-EPI)NonAf (>60 ml/min/1.73 sqM) Glucose (74-99) mg/dL POC Glucose (mg/dL) 113 H (70-110) mg/dL POC Glu Skin Diving Teacher ID Maribeth Engleta Plasma Lactic Acid Chacho (0.7-2.0) mmol/L Calcium (8.4-10.2) mg/dL Total Bilirubin (0.2-1.3) mg/dL AST (14-36) U/L ALT (4-34) U/L Alkaline Phosphatase (38-126) U/L Troponin I (0.000-0.034) ng/mL NT-Pro-B Natriuret Pep pg/mL Total Protein (6.3-8.2) g/dL Albumin (3.5-5.0) g/dL Lipase (23-300) U/L Urine Color Light Yellow Urine Appearance Clear (Clear) Urine pH 7.0 (5.0-8.0) Ur Specific [place] 1.024 (1.001-1.035) Urine Protein Negative (Negative) Urine Glucose (UA) Negative (Negative) Urine Ketones Negative (Negative) Urine Blood Negative (Negative) Urine Nitrite Negative (Negative) Urine Bilirubin Negative (Negative) Urine Urobilinogen <2.0 (<2.0) mg/dL Ur Leukocyte Esterase Large H (Negative) Urine RBC 1 (0-5) /hpf Urine WBC 4 (0-5) /hpf Ur Squamous Epith Cells 3 (0-4) /hpf Urine Bacteria Rare H (None) /hpf Hyaline Casts 1 (0-2) /lpf Urine Mucus Rare H (None) /hpf Disposition Clinical Impression: Abdominal pain, Vasovagal near syncope Disposition: HOME SELF-CARE Condition: Stable Instructions (If sedation given, give patient instructions): Near Syncope (ED) Additional Instructions: Please return to the Emergency Department if symptoms worsen or any other concerns. Is patient prescribed a controlled substance at d/c from ED?: No Referrals: José Miguel Costa MD [Primary Care Provider] - 1-2 days Time of Disposition: 11:13
[2022-09-30 08:30] LABS: Glucose,Whole Blood 113 mg/dL (70-110)
[2022-09-30 08:34] LABS: Basophils % (A) 1 %; Eosinophils # (A) 0.2 k/uL (0-0.7); Eosinophils % (A) 4 %; HCT 35.7 % (34.0-46.0); HGB 12.1 gm/dL (11.4-16.0); Lymphocytes # (A) 1.7 k/uL (1.0-4.8); Lymphocytes % (A) 40 %; MCH 29.6 pg (25.0-35.0); MCHC 33.8 g/dL (31.0-37.0); MCV 87.6 fL (80.0-100.0); Monocytes # (A) 0.3 k/uL (0-1.0); Monocytes % (A) 8 %; Neutrophils % (A) 46 %; Platelet Count 270 k/uL (150-450); RBC 4.07 m/uL (3.80-5.40); RDW 12.7 % (11.5-15.5); WBC 4.3 k/uL (3.8-10.6)
[2022-09-30 08:54] LABS: ALT 28 U/L (4-34); AST 26 U/L (14-36); African American GFR (CKD) >90 (>60 ml/min/1.73 sqM); Albumin 4.7 g/dL (3.5-5.0); Alkaline Phosphatase 86 U/L (38-126); Anion Gap 14 mmol/L; Blood Urea Nitrogen 10 mg/dL (7-17); Calcium 9.1 mg/dL (8.4-10.2); Carbon Dioxide 19 mmol/L (22-30); Chloride 98 mmol/L (98-107); Glucose 119 mg/dL (74-99); Lipase 186 U/L (23-300); Non-African American GFR(CKD) >90 (>60 ml/min/1.73 sqM); Potassium 4.1 mmol/L (3.5-5.1); Sodium 131 mmol/L (137-145); Total Bilirubin 0.5 mg/dL (0.2-1.3); Total Protein 7.4 g/dL (6.3-8.2)
--- NOTE | 2022-09-30 08:54 | XR ---
EXAMINATION TYPE: XR chest 2V DATE OF EXAM: 09/30/2022 COMPARISON: 01/30/2020 INDICATION: Short of breath dizziness weakness TECHNIQUE: Frontal and lateral views of the chest are obtained. FINDINGS: The heart size is normal. The pulmonary vasculature is normal. The lungs are clear. Spondylosis through the lower thoracic spine. IMPRESSION: 1. No acute pulmonary process.
--- NOTE | 2022-09-30 09:48 | CT ---
EXAMINATION TYPE: CT chest angio for PE DATE OF EXAM: 09/30/2022 COMPARISON: NONE HISTORY: CP, SOB, and Abdominal pain CT DLP: 1576.9 mGycm. Automated Exposure Control for Dose Reduction was Utilized. CONTRAST: CTA scan of the thorax is performed with IV Contrast, patient injected with 100 ml mL of Isovue 370, pulmonary embolism protocol. MIP Images are created on CT scanner and reviewed. FINDINGS: LUNGS: Mild bibasilar linear scarring and/or atelectasis. No suspicious focal consolidation. No pleur al effusion or pneumothorax is seen bilaterally. No suspicious masses. MEDIASTINUM: There is satisfactory enhancement of the pulmonary artery and its branches, there is no CT evidence for pulmonary embolism. There are no greater than 1 cm hilar or mediastinal lymph nodes. No cardiomegaly or pericardial effusion is seen. Satisfactory enhancement of the thoracic aorta wi thout dissection ascending aorta measures up to 3.8 cm in diameter. OTHER: Please refer to same day CT abdomen and pelvis report for complete details on the upper abdome n. IMPRESSION: No CT evidence for pulmonary embolism. No suspicious acute pulmonary process.
--- NOTE | 2022-09-30 09:56 | CT ---
EXAMINATION TYPE: CT abdomen pelvis w con DATE OF EXAM: 09/30/2022 HISTORY: CP, SOB and Abdominal pain CT DLP: 1576.9mGycm Automated Exposure Control for Dose Reduction was Utilized. CONTRAST: CT scan of the abdomen and pelvis is performed without oral and with IV Contrast, patient injected wi th 100 ml mL of Isovue 370. COMPARISON: Prior CT 2011 FINDINGS: LUNG BASES: Please refer to same day CTA chest report for complete details on the lung bases. LIVER/GB: Visualized liver remains heterogeneously hypodense relative to spleen consistent with mild diffuse fatty infiltration. PANCREAS: No significant abnormality is seen. SPLEEN: No significant abnormality is seen. ADRENALS: No significant abnormality is seen. KIDNEYS: Symmetric corticomedullary uptake and excretion without hydronephrosis seen bilaterally. BOWEL: Suboptimal evaluation without enteric contrast. No suspicious small or large bowel dilatation is seen. Mild to borderline moderate areas of fecal prominence throughout the colon. UTERUS/ADNEXA: Anteverted uterus. Displaced tubal ligation clips in the pelvis on axial image 71 are now present. Scattered tiny bilateral pelvic phleboliths redemonstrated. LYMPH NODES: No greater than 1cm abdominal or pelvic lymph nodes are appreciated. OSSEOUS STRUCTURES: No significant abnormality is seen. OTHER: No significant additional abnormality is seen. IMPRESSION: Mild colonic fecal stasis otherwise no significant new or acute finding is seen to accoun t for patient's clinical symptoms of nonspecified abdominal pain. No bowel obstruction is noted.
[2022-09-30 11:11] LABS: Appearance,Urine Clear (Clear); Bacteria,Urine Rare /hpf; Bilirubin,Urine Negative (Negative); Blood,Urine Negative (Negative); Color,Urine Light Yellow; Glucose,Urine (UA) Negative (Negative); Hyaline Casts,Urine 1 /lpf (0-2); Ketones,Urine Negative (Negative); Leukocyte Esterase,Urine Large (Negative); Mucus,Urine Rare /hpf; Nitrite,Urine Negative (Negative); Protein,Urine Negative (Negative); RBC,Urine 1 /hpf (0-5); Specific Gravity,Urine 1.024 (1.001-1.035); Squamous Epithelial Cell,Urine 3 /hpf (0-4); Urobilinogen,Urine <2.0 mg/dL (<2.0); WBC,Urine 4 /hpf (0-5)
[2022-09-30 11:31] VITALS: BP 136/82; PULSE 70; TEMP 97.8
== END 2022-09-30 11:31 | disposition home or self-care (01) ==
LOC: EC 08:09
DX: R55 Syncope and collapse (principal); R10.9 Unspecified abdominal pain; I10 Essential (primary) hypertension; F41.9 Anxiety disorder, unspecified; Z88.2 Allergy status to sulfonamides; Z79.82 Long term (current) use of aspirin; Z79.899 Other long term (current) drug therapy
CPT/HCPCS: 36415; 93005; 85379; 83880; 80053; 83605; 83690; 84484; 85025; 81001; 71046; 71275; 74177; 99285; 96360; Q9967

== ENCOUNTER → 2022-11-04 | Outpatient (CLI) | payer MEDICAID ==
[2022-11-04 18:23] LABS: African American GFR (CKD) 116.4 (60.0-200.0); Albumin 4.5 g/dL (3.8-4.9); Albumin/Globulin Ratio 1.72 (1.60-3.17); Anion Gap 17.6 mmol/L (10.00-18.00); BUN/Creat Ratio 13.92 Ratio (12.00-20.00); Blood Urea Nitrogen 8.7 mg/dL (9.0-27.0); Calcium 9.7 mg/dL (8.7-10.3); Carbon Dioxide 18.5 mmol/L (20.0-27.5); Globulin 2.6 g/dL (1.6-3.3); Non-African American GFR(CKD) 100.4 (60.0-200.0); Total Bilirubin 0.2 mg/dL (0.30-1.20)
== END | disposition home or self-care (01) ==
LOC: LABWHC1 09:01
PROVIDERS: ATTEND Physician Assistant Medical
DX: E87.1 Hypo-osmolality and hyponatremia (principal); G40.909 Epilepsy, unspecified, not intractable, without status epilepticus
CPT/HCPCS: 36415; 80053; 80183

== ENCOUNTER → 2023-05-22 | Outpatient (CLI) | payer MEDICAID ==
[2023-05-22 11:34] LABS: ALT 28 U/L (8-44); AST 17 U/L (13-35); Albumin 4.7 d/dL (3.8-4.9); Albumin/Globulin Ratio 1.74 Ratio (1.60-3.17); Alkaline Phosphatase 81 U/L (41-126); BUN/Creat Ratio 16.71 Ratio (12.00-20.00); Blood Urea Nitrogen 11.7 mg/dL (9.0-27.0); Calcium 9.5 mg/dL (8.7-10.3); Carbon Dioxide 22.7 mmol/L (21.6-31.8); Chloride 98 mmol/L (96-109); Globulin 2.7 d/dL (1.6-3.3); Glucose 94 mg/dL (70-110); Potassium 4.4 mmol/L (3.5-5.5); Sodium 131 mmol/L (135-145); Total Bilirubin 0.2 mg/dL (0.3-1.2); Total Protein 7.4 d/dL (6.2-8.2)
[2023-05-22 22:03] LABS: Microalbumin Creatinine Ratio <16 mg/g Cr (0-30); Urine Creatinine 74.7 mg/dL (28.0-217.0)
== END | disposition home or self-care (01) ==
LOC: LABWHC1 07:04
PROVIDERS: ATTEND Physician Assistant Medical
DX: E87.1 Hypo-osmolality and hyponatremia (principal); R73.03 Prediabetes; G40.909 Epilepsy, unspecified, not intractable, without status epilepticus
CPT/HCPCS: 36415; 80053; 80156; 82043; 82570

== ENCOUNTER → 2023-06-04 | Outpatient (CLI) | payer MEDICAID ==
[2023-06-04 16:42] LABS: ALT 31 U/L (8-44); AST 18 U/L (13-35); Albumin 4.7 d/dL (3.8-4.9); Albumin/Globulin Ratio 1.74 Ratio (1.60-3.17); Alkaline Phosphatase 81 U/L (41-126); BUN/Creat Ratio 16.83 Ratio (12.00-20.00); Blood Urea Nitrogen 10.1 mg/dL (9.0-27.0); Calcium 9.7 mg/dL (8.7-10.3); Carbon Dioxide 23.1 mmol/L (21.6-31.8); Chloride 98 mmol/L (96-109); Globulin 2.7 d/dL (1.6-3.3); Glucose 90 mg/dL (70-110); Potassium 4.6 mmol/L (3.5-5.5); Sodium 133 mmol/L (135-145); Total Bilirubin <0.2 mg/dL (0.3-1.2); Total Protein 7.4 d/dL (6.2-8.2)
== END | disposition home or self-care (01) ==
LOC: LABWHC1 07:28
PROVIDERS: ATTEND Physician Assistant Medical
DX: E87.1 Hypo-osmolality and hyponatremia (principal); R52 Pain, unspecified
CPT/HCPCS: 36415; 80053; 83930; 83935; 84300

== ENCOUNTER 2023-09-29 06:34 | Day surgery (SDC) | payer MEDICAID ==
[2023-09-29] MEDS ORDERED: LIDOCAINE 1% (10MG/ML) FOR IV START INTRADERMA PRN (07:17)
[2023-09-29] MEDS ORDERED: LACTATED RINGERS 1,000 ML IV SCH (07:17)
[2023-09-29] MEDS ORDERED: ONDANSETRON 4 MG/2 ML VIAL IVP ONE (07:34)
[2023-09-29] MEDS ORDERED: ONDANSETRON 4 MG/2 ML VIAL ONE (07:37)
[2023-09-29 07:38] LABS: Glucose,Whole Blood 107 mg/dL (70-110)
[2023-09-29 07:41] VITALS: TEMP 97
[2023-09-29] MEDS ORDERED: PROPOFOL 10 MG/ML 20 ML VIAL IV ONE (08:04)
--- NOTE | 2023-09-29 08:09 | P.GSHP ---
History of Present Illness H&P Date: 09/29/23 Chief Complaint: Colon cancer screening 57-year-old female here for colonoscopy. Last colonoscopy 6 years ago. History of tubular adenoma at the time. No bowel complaints. No family history of colon cancer. Past Medical History Past Medical History: Diabetes Mellitus, GERD/Reflux, Hypertension, Seizure Disorder Additional Past Medical History / Comment(s): last seizure 2011, still gets auras periodically, hx colon polyps History of Any Multi-Drug Resistant Organisms: None Reported Past Surgical History: Joint Replacement, Orthopedic Surgery, Tubal Ligation, Uterine Ablation Additional Past Surgical History / Comment(s): right orbital fx. repair after accident, left knee arthroscopy & left knee replaced Past Anesthesia/Blood Transfusion Reactions: Motion Sickness, Postoperative Nausea & Vomiting (PONV) Smoking Status: Never smoker - Past Family History Mother Family Medical History: Coronary Artery Disease (CAD), Diabetes Mellitus Medications and Allergies Home Medications Medication Instructions Recorded Confirmed Type Cholecalciferol [Vitamin D3 (25 2,000 unit PO DAILY 01/26/17 09/29/23 History Mcg = 1000 Iu)] Amitriptyline HCl [Elavil] 20 mg PO HS 09/23/18 09/29/23 History traZODone HCL 50 mg PO HS 09/23/18 09/29/23 History Omeprazole [PriLOSEC] 20 mg PO Q2D 08/02/19 09/29/23 History lisinopriL [Zestril] 20 mg PO DAILY 08/02/19 09/29/23 History Docusate [Colace] 100 mg PO DAILY #30 capsule 08/09/19 09/29/23 Rx Multivitamins, Thera [Multivitamin 1 tab PO DAILY 09/21/23 09/29/23 History (formulary)] Semaglutide [Ozempic] 1 mg SQ FR 09/21/23 09/29/23 History carBAMazepine [Carbatrol] 300 mg PO BID 09/21/23 09/29/23 History Allergies Allergy/AdvReac Type Severity Reaction Status Date / Time Sulfa (Sulfonamide Allergy Rash/Hives Verified 09/29/23 07:18 Antibiotics) Surgical - Exam Vital Signs Temp Pulse Resp BP Pulse Ox 97 F L 82 16 136/75 98 09/29/23 07:25 09/29/23 07:25 09/29/23 07:25 09/29/23 07:25 09/29/23 07:25 Physical exam: General: Well-developed, well-nourished HEENT: Normocephalic, sclerae nonicteric Abdomen: Nontender, nondistended Extremities: No edema Neuro: Alert and oriented Assessment and Plan (1) Colon cancer screening Narrative/Plan: Will proceed with colonoscopy at this time Current Visit: Yes Status: Acute Code(s): Z12.11 - ENCOUNTER FOR SCREENING FOR MALIGNANT NEOPLASM OF COLON SNOMED Code(s): 996441249
--- NOTE | 2023-09-29 08:41 | P.PCN ---
Date of Procedure: 09/29/23 Procedure(s) Performed: PREOPERATIVE DIAGNOSIS: Colon cancer screening with history of adenoma POSTOPERATIVE DIAGNOSIS: Cecal polyp, rectal polyp 2 PROCEDURE: Colonoscopy with snare polypectomy ANESTHESIA: MAC SURGEON: Nilo Perla M.D. SPECIMENS: Polyps ENDOSCOPIC PROCEDURE: The patient was placed on the endoscopy table in the left decubitus position. The Olympus colonoscope was inserted into the anus and passed under direct visualization to the base of the cecum. The appendiceal orifice was visualized. From that point the scope was slowly withdrawn inspecting all surfaces carefully. There was a small sessile polyp opposite of the ileocecal valve. This was removed using the snare with cautery technique. The remainder of the cecum and ascending transverse descending and sigmoid colon appeared normal. In the rectum there were 2 polyps one measuring about 9 mm in size removed using the snare with cautery technique. The remainder the rectum was normal. No visible diverticulosis. Digital rectal examination was normal. The patient was taken to the recovery room in stable condition per anesthesia guidelines. RECOMMENDATIONS: Await biopsy results. Plan repeat colonoscopy 5 years.
[2023-09-29 08:49] VITALS: RESP 12
[2023-09-29 09:13] VITALS: BP 120/72; PULSE 65
== END 2023-09-29 09:41 | disposition home or self-care (01) ==
LOC: ORWHC2ENDO 06:34
PROVIDERS: ATTEND Surgery
DX: Z12.11 Encounter for screening for malignant neoplasm of colon (principal); K62.1 Rectal polyp; K63.5 Polyp of colon; I10 Essential (primary) hypertension; E11.9 Type 2 diabetes mellitus without complications; F41.9 Anxiety disorder, unspecified; K21.9 Gastro-esophageal reflux disease without esophagitis; G40.909 Epilepsy, unspecified, not intractable, without status epilepticus; Z79.82 Long term (current) use of aspirin; Z79.84 Long term (current) use of oral hypoglycemic drugs; Z88.2 Allergy status to sulfonamides; Z79.85 Long-term (current) use of injectable non-insulin antidiabetic drugs; Z79.01 Long term (current) use of anticoagulants; Z79.899 Other long term (current) drug therapy; Z98.890 Other specified postprocedural states
CPT/HCPCS: 88305; 45385; J2405; J2704

== ENCOUNTER → 2023-12-08 | Outpatient (CLI) | payer MEDICAID ==
--- NOTE | 2023-12-08 18:16 | MM ---
Reason for Exam: Screening (asymptomatic). Last mammogram was performed 1 year(s) and 4 month(s) ago. Patient History: Menarche at age 11. First Full-Term at age 30. Late child-bearing (after 30). Postmenopausal. Hormonal Contraceptives, starting at age 20 for 22 years. Paternal grandmother had breast cancer, age 75. Risk Values: Ilsa 5 year model risk: 2.0%. NCI Lifetime model risk: 11.4%. Prior Study Comparison: 10/25/2018 Bilateral Screening Mammogram, [facility]. 12/13/2020 Bilateral Screening Mammogram, [facility]. 08/25/2022 Bilateral MG 3D screening mammo w/cad, [facility]. Tissue Density: The breast tissue is heterogeneously dense. This may lower the sensitivity of mammography. Findings: Analyzed By CAD. Benign round calcifications on the right. Unchanged areas of asymmetric density. There is no suspicious group of microcalcifications or new suspicious mass in either breast. Overall Assessment: Benign, BI-RAD 2 Management: Screening Mammogram of both breasts in 1 year. Patient should continue monthly self-breast exams. A clinical breast exam by your physician is recommended on an annual basis. This exam should not preclude additional follow-up of suspicious palpable abnormalities. Note on Ilsa scores and lifetime risk: 1. A Ilsa score greater than 3% is considered moderate risk. If this is the case, consider specialist referral to assess eligibility for a risk reducing agent. 2. If overall lifetime risk for the development of breast cancer is 20% or higher, the patient may qualify for future screening with alternating mammogram and breast MRI. Electronically signed and approved by: Eddie Mansfield M.D. Radiologist
== END | disposition home or self-care (01) ==
LOC: RADMAMWWP 09:21
PROVIDERS: ATTEND Family Medicine
DX: Z12.31 Encounter for screening mammogram for malignant neoplasm of breast (principal); Z80.3 Family history of malignant neoplasm of breast; Z78.0 Asymptomatic menopausal state
CPT/HCPCS: 77063; 77067

== ENCOUNTER → 2024-01-07 | Outpatient (CLI) | payer MEDICAID ==
[2024-01-07 16:47] LABS: Basophils # (A) 0.02 X 10*3/uL (0.00-0.10); Basophils % (A) 0.5 %; Eosinophils # (A) 0.14 X 10*3/uL (0.04-0.35); Eosinophils % (A) 3.5 %; HCT 35.6 % (37.2-46.3); HGB 11.3 g/dL (12.0-15.0); Immature Grans, Automated 0 %; Lymphocytes # (A) 1.84 X 10*3/uL (0.90-5.00); Lymphocytes % (A) 46.6 %; MCH 29.7 pg (27.0-32.0); MCHC 31.7 g/dL (32.0-37.0); MCV 93.7 FL (80.0-97.0); Monocytes # (A) 0.26 X 10*3/uL (0.20-1.00); Monocytes % (A) 6.6 %; NRBC Per 100 WBC 0 X 10*3/uL (0.00-0.01); Neutrophils # (A) 1.69 X 10*3/uL (1.80-7.70); Neutrophils % (A) 42.8 %; Platelet Count 257 X 10*3/uL (140-440); RDW 12.7 % (11.5-14.5); WBC 3.95 X 10*3/uL (4.50-10.00)
[2024-01-07 17:04] LABS: ALT 29 U/L (8-44); AST 18 U/L (13-35); Albumin 4.3 g/dL (3.8-4.9); Albumin/Globulin Ratio 1.79 Ratio (1.60-3.17); Alkaline Phosphatase 81 U/L (41-126); Blood Urea Nitrogen 7.8 mg/dL (9.0-27.0); Calcium 9.4 mg/dL (8.7-10.3); Carbon Dioxide 23.9 mmol/L (21.6-31.8); Chloride 101 mmol/L (96-109); Chol/HDL Ratio 2.76 Ratio; Globulin 2.4 g/dL (1.6-3.3); Glucose 91 mg/dL (70-110); LDL Cholesterol,Calculated 112.5 mg/dL (0.0-131.0); Potassium 4.5 mmol/L (3.5-5.5); Sodium 137 mmol/L (135-145); Total Bilirubin <0.2 mg/dL (0.3-1.2); Total Protein 6.7 g/dL (6.2-8.2)
[2024-01-07 19:01] LABS: Carbamazepine (Tegretol) 8.8 UG/ML (4.0-12.0)
== END | disposition home or self-care (01) ==
LOC: LABWHC1 08:01
PROVIDERS: ATTEND Physician Assistant Medical
DX: E11.9 Type 2 diabetes mellitus without complications (principal)
CPT/HCPCS: 36415; 80053; 80061; 80156; 85025

== ENCOUNTER → 2024-01-19 | Outpatient (CLI) | payer MEDICAID ==
[2024-01-19 12:54] LABS: Basophils # (A) 0.03 X 10*3/uL (0.00-0.10); Basophils % (A) 0.7 %; Eosinophils # (A) 0.09 X 10*3/uL (0.04-0.35); Eosinophils % (A) 2.2 %; HCT 36.8 % (37.2-46.3); HGB 11.8 g/dL (12.0-15.0); Lymphocytes # (A) 1.96 X 10*3/uL (0.90-5.00); Lymphocytes % (A) 47.5 %; MCH 30.1 pg (27.0-32.0); MCHC 32.1 g/dL (32.0-37.0); MCV 93.9 FL (80.0-97.0); Monocytes # (A) 0.31 X 10*3/uL (0.20-1.00); Monocytes % (A) 7.5 %; NRBC Per 100 WBC 0 X 10*3/uL (0.00-0.01); Neutrophils # (A) 1.73 X 10*3/uL (1.80-7.70); Neutrophils % (A) 41.9 %; Platelet Count 251 X 10*3/uL (140-440); RBC 3.92 X 10*6/uL (4.10-5.20); RDW 12.9 % (11.5-14.5); WBC 4.13 X 10*3/uL (4.50-10.00)
[2024-01-19 17:30] LABS: % Iron Saturation 36.68 (12.00-45.00)
== END | disposition home or self-care (01) ==
LOC: LABWHC1 09:19
PROVIDERS: ATTEND Family Medicine
DX: D64.9 Anemia, unspecified (principal)
CPT/HCPCS: 36415; 82607; 82728; 82746; 83540; 83550; 85025

== ENCOUNTER → 2024-08-26 | Outpatient (CLI) | payer MEDICAID ==
[2024-08-26 11:03] LABS: Basophils # (A) 0.02 X 10*3/uL (0.00-0.10); Basophils % (A) 0.4 %; Eosinophils # (A) 0.12 X 10*3/uL (0.04-0.35); Eosinophils % (A) 2.3 %; HCT 34.5 % (37.2-46.3); HGB 11.4 g/dL (12.0-15.0); Lymphocytes # (A) 1.96 X 10*3/uL (0.90-5.00); Lymphocytes % (A) 37.7 %; MCH 30.6 pg (27.0-32.0); MCV 92.7 FL (80.0-97.0); Monocytes # (A) 0.47 X 10*3/uL (0.20-1.00); NRBC Per 100 WBC 0 X 10*3/uL (0.00-0.01); Neutrophils # (A) 2.62 X 10*3/uL (1.80-7.70); Neutrophils % (A) 50.4 %; Platelet Count 265 X 10*3/uL (140-440); RBC 3.72 X 10*6/uL (4.10-5.20); RDW 12.9 % (11.5-14.5)
[2024-08-26 15:42] LABS: ALT 28 U/L (8-44); AST 17 U/L (13-35); Albumin 4.4 g/dL (3.8-4.9); Albumin/Globulin Ratio 1.76 Ratio (1.60-3.17); Alkaline Phosphatase 84 U/L (41-126); BUN/Creat Ratio 17.29 Ratio (12.00-20.00); Blood Urea Nitrogen 12.1 mg/dL (9.0-27.0); Calcium 9.2 mg/dL (8.7-10.3); Carbon Dioxide 23.7 mmol/L (21.6-31.8); Chloride 101 mmol/L (96-109); Globulin 2.5 g/dL (1.6-3.3); Glucose 96 mg/dL (70-110); LDL Cholesterol,Calculated 88.9 mg/dL (0.0-131.0); Potassium 5.2 mmol/L (3.5-5.5); Sodium 136 mmol/L (135-145); Total Bilirubin <0.2 mg/dL (0.3-1.2); Total Protein 6.9 g/dL (6.2-8.2)
== END | disposition home or self-care (01) ==
LOC: LABWHC1 07:02
PROVIDERS: ATTEND Family Medicine
DX: E78.5 Hyperlipidemia, unspecified
CPT/HCPCS: 36415; 80053; 80061; 85025

== ENCOUNTER → 2025-04-20 | Outpatient (CLI) | payer MEDICAID ==
--- NOTE | 2025-04-20 08:09 | MM ---
Reason for Exam: Screening (asymptomatic). Last mammogram was performed 1 year(s) and 4 month(s) ago. Patient History: Menarche at age 11. First Full-Term at age 30. Late child-bearing (after 30). Postmenopausal. Previous chest radiation therapy. Hormonal Contraceptives, starting at age 20 for 22 years. Paternal grandmother had breast cancer, age 75. Risk Values: Ilsa 5 year model risk: 2.1%. NCI Lifetime model risk: 11.2%. Prior Study Comparison: 12/13/2020 Bilateral Screening Mammogram, [facility]. 08/25/2022 Bilateral MG 3D screening mammo w/cad, [facility]. 12/08/2023 Bilateral MG 3D screening mammo w/cad, [facility]. Tissue Density: The breasts are heterogeneously dense, which may obscure small masses. Findings: Analyzed By CAD. Right breast: There is no suspicious group of microcalcifications or new suspicious mass. Benign-appearing calcifications right breast. Left breast: There is no suspicious group of microcalcifications or new suspicious mass. Overall Assessment: Negative, BI-RAD 1 Management: Screening Mammogram of both breasts in [address] [facility] will attempt to contact patient to return for supplemental views and ultrasound if indicated. Patient should continue monthly self-breast exams. A clinical breast exam by your physician is recommended on an annual basis. This exam should not preclude additional follow-up of suspicious palpable abnormalities. Note on Ilsa scores and lifetime risk: 1. A Ilsa score greater than 3% is considered moderate risk. If this is the case, consider specialist referral to assess eligibility for a risk reducing agent. 2. If overall lifetime risk for the development of breast cancer is 20% or higher, the patient may qualify for future screening with alternating mammogram and breast MRI. [facility], , 04/20/2025 8:07 AM. Electronically signed and approved by: El Moya DO
== END | disposition home or self-care (01) ==
LOC: RADMAMWWP 07:01
PROVIDERS: ATTEND Family Medicine
DX: Z12.31 Encounter for screening mammogram for malignant neoplasm of breast (principal); R92.333 Mammographic heterogeneous density, bilateral breasts; R92.1 Mammographic calcification found on diagnostic imaging of breast; Z80.3 Family history of malignant neoplasm of breast; Z92.0 Personal history of contraception; Z78.0 Asymptomatic menopausal state
CPT/HCPCS: 77063; 77067